=== PATIENT | male | born 1990 | race Caucasian/White ===

== ENCOUNTER 2018-10-13 10:34 | Inpatient (IN) | payer OTHER ==
[2018-10-13 11:00] VITALS: BMI 17.9
--- NOTE | 2018-10-13 12:28 | HP ---
COWS - Scale Resting Pulse: 1= [place] 81-100 Sweatin= Chills/Flushing Restless Observation: 1= Difficult to Sit Still Pupil Size: 0= Normal to Room Light Bone or Joint Aches: 2= Severe Diffuse Aches Runny Nose/ Eye Tearin= Runny Nose/Eyes GI Upset > 30mins: 2= Nausea/Diarrhea Tremor Observation: 1= Tremor [place], Not Seen Yawning Observation: 1= 1-2x During Session Anxiety or Irritability: 2=Irritable/Anxious Goose Flesh Skin: 3=Piloerection COWS Score: 16 CIWA Score Nausea/Vomitin Muscle Tremors: 2 Anxiety: 2 Agitation: 1-Slight > Activity Paroxysmal Sweats: 1-Minimal Palms Moist Orientation: 0-Oriented Tacttile Disturbances: 1-Very Mild Itch/Numbness Auditory Disturbances: 0-None Visual Disturbances: 0-None Headache: 2-Mild CIWA-Ar Total Score: 11 - Admission Criteria [facility] Guidelines: Admission for Medically Managed Detox: Requires at least one of the followin. CIWA greater than 12 2. Seizures within the past 24 hours 3. Delirium tremens within the past 24 hours 4. Hallucinations within the past 24 hours 5. Acute intervention needed for co occurring medical disorder 6. Acute intervention needed for co occurring psychiatric disorder 7. Severe withdrawal that cannot be handled at a lower level of care (continued vomiting, continued diarrhea, abnormal vital signs) requiring intravenous medication and/or fluids 8. Admission ROS [facility] Chief Complaint: 28 y/o M with PMH anxiety, bipolar, depression, insomnia, ADHD, rhabdo, hx cellulitis R hand who presents for detox from heroin, benzos (xanax), and alcohol. Allergies/Adverse Reactions: Allergies Allergy/AdvReac Type Severity Reaction Status Date / Time lamotrigine [From Lamictal] Allergy Verified 10/13/18 10:45 Penicillins Allergy Verified 10/13/18 10:45 History of Present Illness: 28 y/o M with PMH anxiety, bipolar, depression, insomnia, ADHD, rhabdo, hx R hand cellulitis who presents for detox from heroin, benzos (xanax), and alcohol. Per pt, his last use of heroin was yesterday. Snorted 3 bags worth. Has IVDA in past in b/l antecubital fossas. Sometimes uses daily, same amount. Has never OD. Longest sobriety 6 months when using subutex. Has been using suboxone 8mg BID. States that the heroin gives him the feeling of euphoria and pain relief. Last used benzos (xanax) yesterday. Used 3mg - bar version. Buys from street. Uses a few times a week. Usually also uses klonopin from his psychiatrist. Longest sobriety 1 yr. Last drank alcohol yesterday. 4 beers. Drinks a 6 pack a few times a week, as well as 1/2 pint of vodka. Also occasionally smokes marijuana 1 joint. Was in detox [address] [facility] PMH: as above PsxH: sx for gynecomastia meds: suboxone, klonopin, vivanz, marinol allergies: lamictal - suicidal ideation, PCN - rash FH: tyson SH: lives in home. on SSI.has smoked a few cigarettes / day x 10 yrs heroin and alcohol use as above. benzo use as above. - Ebola screening Have you traveled outside of the country in the last 21 days: No Have you had contact with anyone from an Ebola affected area: No Do you have a fever: No - Review of Systems Constitutional: Diaphoresis, Weakness, Unintentional Wgt. Loss EENT: reports: Tearing, Nose Congestion, Mouth Pain, Throat Swelling Respiratory: reports: Cough, Shortness of Breath Cardiac: reports: Chest Pain, Palpitations GI: reports: Nausea : reports: No Symptoms Reported Musculoskeletal: reports: Back Pain, Joint Pain, Muscle Pain Integumentary: reports: No Symptoms Reported Neuro: reports: Headache Endocrine: reports: No Symptoms Reported Hematology: reports: No Symptoms Reported Psychiatric: reports: Orientated x3, Agitated, Anxious Patient History - Patient Medical History Hx Anemia: No Hx Asthma: No Hx Chronic Obstructive Pulmonary Disease (COPD): No Hx Cancer: No Hx Cardiac Disorders: Yes (palpitations) Hx Congestive Heart Failure: No Hx Hypertension: No Hx Hypercholesterolemia: No Hx Pacemaker: No HX Cerebrovascular Accident: No Hx Seizures: No Hx Dementia: No Hx Diabetes: No Hx Gastrointestinal Disorders: No Hx Liver Disease: No Hx Genitourinary Disorders: Yes (Rhabdomyolysis) Hx Renal Disease (ESRD): No Hx Thyroid Disease: No Hx Human Immunodeficiency Virus (HIV): No Hx Hepatitis C: No - Patient Surgical History Past Surgical History: Yes Hx Neurologic Surgery: No Hx Cataract Extraction: No Hx Cardiac Surgery: No Hx Lung Surgery: No Hx Breast Surgery: No Hx Abdominal Surgery: No Hx Appendectomy: No Hx Cholecystectomy: No Hx Genitourinary Surgery: No Hx Section: No Hx Orthopedic Surgery: No Other Surgical History: sx for gynecomastia Anesthesia Reaction: No - PPD History Documented Results: Negative w/o proof PPD to be Administered?: Yes - Reproductive History Patient is a Female of Child Bearing Age (11 -55 yrs old): No - Smoking Cessation Smoking history: Current every day smoker Have you smoked in the past 12 months: No Aproximately how many cigarettes per day: 10 Hx Chewing Tobacco Use: No Initiated information on smoking cessation: Yes 'Breaking Loose' booklet given: 10/13/18 - Substances abused Alcohol Substance route: Oral Frequency: 3-6 times per week Amount used: 2-6 cans of beer Age of first use: 15 Date of last use: 10/12/18 Heroin Substance route: Injection Frequency: Daily Amount used: 1 bag to 1 bundle Age of first use: 18 Date of last use: 10/12/18 Alprazolam (Xanax) Substance route: Oral Frequency: 1-3 times last 30 days Amount used: 2mg-4mg tablets Age of first use: 16 Date of last use: 10/12/18 Oxycontin Substance route: Oral Frequency: 1-3 times last 30 days Amount used: 30 mg-120 mg when used Age of first use: 17 Date of last use: 10/11/18 Family Disease History - Family Disease History Family History: Denies Admission Physical Exam [facility] - Vital Signs Vital Signs: Vital Signs - 24 hr 10/13/18 10:50 Temperature 97.2 F L Pulse Rate 83 Respiratory 17 Rate Blood Pressure 120/81 - Physical General Appearance: Yes: Within Normal Limits HEENTM: Yes: Within Normal Limits, Normocephalic Respiratory: Yes: Within Normal Limits, Lungs Clear, Normal Breath Sounds Neck: Yes: Supple Breast: Yes: Breast Exam Deferred Cardiology: Yes: Regular Rhythm, Regular Rate, S1, S2 Abdominal: Yes: Non Tender, Soft Genitourinary: Yes: Within Normal Limits Back: Yes: Within Normal Limits Musculoskeletal: Yes: Within Normal Limits, full range of Motion Extremities: Yes: Within Normal Limits Neurological: Yes: java developer consultant II-XII NML intact Integumentary: Yes: Within Normal Limits Lymphatic: Yes: Within Normal Limits - Addiitonal Findings: Problem list: ADHD Anxiety Bipolar Depression hx cellulitis R hand hx rhabdomyolysis heroin use disorder benzo use disorder alcohol use with uncomplicated withdrawal Cleared for Admission [facility] - Detox or Rehab [facility] Level of Care: Medically Managed Detox Regimen/Protocol: Valium, Suboxone Breathalyzer - Breathalyzer Breathalyzer: 0 Urine Drug Screen - Test Device Lot number: [id number] Expiration date: 08/02/20 - Control Is test valid?: Yes - Results Drug screen NEGATIVE: No Urine drug screen results: THC-Marijuana, MOP-Opiates, BZO-Benzodiazepines, BUP- Suboxone Inpatient Rehab Admission - Rehab Decision to Admit Inpatient rehab admission?: No
--- NOTE | 2018-10-13 12:41 | PN ---
"Teaching Attending Note Name of Resident: Lizbeth Chávez ATTENDING PHYSICIAN STATEMENT I saw and evaluated the patient. I reviewed the resident's note and discussed the case with the resident. I agree with the resident's findings and plan as documented. SUBJECTIVE: OBJECTIVE: This report was requested by: Carolina Morales | Reference #: [id number] Others' Prescriptions Patient Name: Jai Luo Date: 1990 Address: [place] [address] Sex: Male Rx Written Rx Dispensed Drug Quantity Days Supply Prescriber Name 09/26/2018 09/26/2018 vyvanse 30 mg capsule 15 15 Tate Aparicio (STUNT PERSON) Patient Name: Jai Luo Date: 1990 Address: [address] [place] [address] Sex: Male Rx Written Rx Dispensed Drug Quantity Days Supply Prescriber Name 09/21/2018 09/21/2018 clonazepam 1 mg tablet 60 30 Inder Díaz MD 09/21/2018 09/21/2018 buprenorphine-naloxone 8-2 mg sl film 30 15 Inder Díaz MD 03/18/2018 03/23/2018 dronabinol 5 mg capsule 90 30 Yury, Domenica Patient Name: Jai Luo Date: 1990 Address: [place] [address] Sex: Male Rx Written Rx Dispensed Drug Quantity Days Supply Prescriber Name 08/26/2018 08/27/2018 vyvanse 30 mg capsule 15 15 Tate Aparicio A (STUNT PERSON) 08/26/2018 08/26/2018 clonazepam 0.5 mg tablet 30 15 PatriciaTate jeong A (STUNT PERSON) 07/27/2018 07/27/2018 clonazepam 1 mg tablet 14 7 Carola Gonzalez MD Patient Name: Jai Luo Date: 1990 Address: [place] [address] Sex: Male Rx Written Rx Dispensed Drug Quantity Days Supply Prescriber Name 08/15/2018 08/15/2018 lyrica 50 mg capsule 30 15 Lev, Kristine 08/15/2018 08/15/2018 buprenorphine 8 mg tablet sl 30 15 Clara Fernandez Patient Name: Jai Luo Date: 1990 Address: [address] [place] [id number] Sex: Male Rx Written Rx Dispensed Drug Quantity Days Supply Prescriber Name 07/06/2018 07/07/2018 buprenorphine 8 mg tablet sl 30 15 [facility] 04/01/2018 04/03/2018 diazepam 10 mg tablet 14 14 Azul Salazar 04/01/2018 04/03/2018 buprenorphine 8 mg tablet sl 28 14 SciAzul holloway 03/07/2018 03/07/2018 lyrica 50 mg capsule 14 14 Lina Alston MD 02/10/2018 02/11/2018 lyrica 50 mg capsule 15 15 [facility] 02/10/2018 02/11/2018 diazepam 10 mg tablet 30 15 [facility]ahlyn [facility] 01/11/2018 01/11/2018 lyrica 200 mg capsule 60 30 RysMakeda justice MD 01/11/2018 01/11/2018 diazepam 10 mg tablet 30 30 RysMakeda justice MD 11/09/2017 11/09/2017 buprenorphine 8 mg tablet sl 60 30 Elaina, Víctor 11/09/2017 11/09/2017 lyrica 100 mg capsule 90 30 Elaina, Víctor 11/09/2017 11/09/2017 diazepam 10 mg tablet 80 30 Elaina, Víctor 11/09/2017 11/09/2017 dextroamphetamine 10 mg tab 75 30 Elaina, Víctor Patient Name: Jai Luo Date: 1990 Address: [address] [place] [address] Sex: Male Rx Written Rx Dispensed Drug Quantity Days Supply Prescriber Name 06/02/2018 06/03/2018 clonazepam 1 mg tablet 28 14 Evelina Badillo MD 03/04/2018 03/07/2018 buprenorphine 8 mg tablet sl 14 14 Armin Capellan MD 01/25/2018 01/26/2018 buprenorphine 8 mg tablet sl 14 7 Augustus Figueredo MD 01/25/2018 01/26/2018 lyrica 50 mg capsule 7 7 Evelina Badillo MD * - Drugs marked with an asterisk are compound drugs. If the compound drug is made up of more than one controlled substance, then each controlled substance will be a separate row in the pt here requesting detox from etoh abuse , reports use since age 16 , current daily use 1x 6-pk 3-4 x /week , denies seizures, blackouts, + tremors reports hospitalizations in the last week - multiple , [facility] , went for palpitations, claims BW done, ekg done no findings, d/c most recently on Wednesday , saw psychiatrist yesterday and was referred for detox 2/2 intoxication , reports use yesterday . Pt claims he lost his rx and next appt is 10/20/18 w/ psychiatry for refills. Pt appears anxious, evasive, guarded and concerned about obtaining medication rx . heroin - since age 18 , ivdu ,denies Narcan use , reports blackouts, reports abscess in the past ,tx > 4 years ago . LOngest sobriety x 6 mo 2 years ago while in rehab in [place] . benzo - rx from psychiatry ASSESSMENT AND PLAN: etoh abuse , episodic , current symptoms as above. Valium detox . MAT w/ Buprenorphine . f/up w/ prescriber for rx . Psychiatry consult."
[2018-10-13] MEDS ORDERED: IBUPROFEN 400 MG TABLET (FP) PO PRN (12:58)
[2018-10-13] MEDS ORDERED: MAGNESIUM HYDROX 2400MG/30ML ORAL SUSPENSION 30 ML CUP PO PRN (12:58)
[2018-10-13] MEDS ORDERED: BISMUTH SUBSALICYLATE 262 MG/15 ML BTL PO PRN (12:58)
[2018-10-13] MEDS ORDERED: MENTHOL/PHENOL 1 EACH UD MM PRN (12:58)
[2018-10-13] MEDS ORDERED: MAG HYDROX/AL HYDROX/SIMETH 30 ML UNIT-DOSE CUP PO PRN (12:58)
[2018-10-13] MEDS: BUPRENORPHINE/NALOXONE 8 MG/2 MG FILM PACKET SL SCH (14:01)
[2018-10-13] MEDS: diazePAM 5 MG TABLET PO SCH ×2 (14:05→22:03)
[2018-10-13 16:48] LABS: HEMATOCRIT 43.6 % (35.4-49); HEMOGLOBIN 14.9 GM/dL (11.7-16.9); MCH 28.4 pg (25.7-33.7); MCHC 34.2 g/dl (32.0-35.9); MEAN PLT VOLUME 8.1 fl (7.5-11.1); PLATELET COUNT 296 K/MM3 (134-434); RBC 5.26 M/mm3 (4.00-5.60); WHITE BLOOD COUNT 6.4 K/mm3 (4.0-10.0)
[2018-10-13 16:54] LABS: ALBUMIN 4.2 g/dl (3.4-5.0); BILIRUBIN,TOTAL 0.8 mg/dL (0.2-1); BLOOD UREA NITROGEN 11.7 mg/dL (7-18); CALCIUM 9.4 mg/dL (8.5-10.1); CREATININE 0.7 mg/dL (0.55-1.3); POTASSIUM 4.3 mmol/L (3.5-5.1); TOT PROT 7.7 g/dl (6.4-8.2)
[2018-10-13] MEDS: diazePAM 5 MG TABLET PO PRN (18:16)
[2018-10-13] MEDS: NICOTINE POLACRILEX 2 MG GUM BUC PRN (18:34)
[2018-10-13] MEDS: THIAMINE HCL 100 MG TABLET (FP) PO SCH (22:03)
[2018-10-13] MEDS: MELATONIN 5 MG TABLETS PO PRN (22:03)
[2018-10-14] MEDS: diazePAM 5 MG TABLET PO SCH ×2 (05:32→17:02)
[2018-10-14] MEDS: diazePAM 5 MG TABLET PO PRN ×3 (08:30→20:13)
[2018-10-14] MEDS: ACETAMINOPHEN 325 MG TABLET (FP) PO PRN (08:30)
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
[2018-10-14] MEDS: PRENATAL VITAMINS W/ FOLIC ACID TABLET (FP) PO SCH (10:27)
[2018-10-14] MEDS: BUPRENORPHINE/NALOXONE 8 MG/2 MG FILM PACKET SL SCH (10:27)
[2018-10-14] MEDS: NICOTINE POLACRILEX 2 MG GUM BUC PRN (13:15)
--- NOTE | 2018-10-14 14:13 | PN ---
S CIWA - CIWA Score Nausea/Vomitin Muscle Tremors: 2 Anxiety: 2 Agitation: 2 Paroxysmal Sweats: 1-Minimal Palms Moist Orientation: 0-Oriented Tacttile Disturbances: 1-Very Mild Itch/Numbness Auditory Disturbances: 1-Very Mild Visual Disturbances: 0-None Headache: 2-Mild CIWA-Ar Total Score: 13 BHS COWS - Scale Resting Pulse: 0= [place] 80 or Below Sweatin= No chills or Flushing Restless Observation: 0= Sits Still Pupil Size: 1= Pupils >than Normal Bone or Joint Aches: 1= Mild Discomfort Runny Nose/ Eye Tearin= Nasal Congestion GI Upset > 30mins: 1= Stomach Cramp Tremor Observation of Outstretched Hands: 1= Tremor [place], Not Seen Yawning Observation: 1= 1-2x During Session Anxiety or Irritability: 2=Irritable/Anxious Goose Flesh Skin: 0=Smooth Skin COWS Score: 8 BHS Progress Note (SOAP) Subjective: alert,irritable,anxious,interrupted sleep,tremor,pain in the body and back Objective: 10/14/18 14:12 Vital Signs Temperature 97.2 F L 10/14/18 14:00 Pulse Rate 78 10/14/18 14:00 Respiratory Rate 18 10/14/18 14:00 Blood Pressure 118/79 10/14/18 14:00 O2 Sat by Pulse Oximetry (%) Laboratory Last Values WBC 6.4 K/mm3 (4.0-10.0) 10/13/18 13:20 RBC 5.26 M/mm3 (4.00-5.60) 10/13/18 13:20 Hgb 14.9 GM/dL (11.7-16.9) 10/13/18 13:20 Hct 43.6 % (35.4-49) 10/13/18 13:20 MCV 83.0 fl (80-96) 10/13/18 13:20 MCH 28.4 pg (25.7-33.7) 10/13/18 13:20 MCHC 34.2 g/dl (32.0-35.9) 10/13/18 13:20 RDW 14.0 % (11.9-15.9) 10/13/18 13:20 Plt Count 296 K/MM3 (134-434) D 10/13/18 13:20 MPV 8.1 fl (7.5-11.1) 10/13/18 13:20 Sodium 140 mmol/L (136-145) 10/13/18 13:20 Potassium 4.3 mmol/L (3.5-5.1) 10/13/18 13:20 Chloride 106 mmol/L (98-107) 10/13/18 13:20 Carbon Dioxide 29 mmol/L (21-32) 10/13/18 13:20 Anion Gap 5 MMOL/L (8-16) L 10/13/18 13:20 BUN 11.7 mg/dL (7-18) 10/13/18 13:20 Creatinine 0.7 mg/dL (0.55-1.3) 10/13/18 13:20 Est GFR (CKD-EPI)AfAm 148.85 10/13/18 13:20 Est GFR (CKD-EPI)NonAf 128.43 10/13/18 13:20 Random Glucose 85 mg/dL (74-106) 10/13/18 13:20 Calcium 9.4 mg/dL (8.5-10.1) 10/13/18 13:20 Total Bilirubin 0.8 mg/dL (0.2-1) 10/13/18 13:20 AST 5 U/L (15-37) L 10/13/18 13:20 ALT 20 U/L (13-61) 10/13/18 13:20 Alkaline Phosphatase 86 U/L (45-117) 10/13/18 13:20 Total Protein 7.7 g/dl (6.4-8.2) 10/13/18 13:20 Albumin 4.2 g/dl (3.4-5.0) 10/13/18 13:20 RPR Titer Nonreactive (NONREACTIVE) 10/13/18 13:20 HIV 1&2 Antibody Screen Negative 10/14/18 07:00 HIV P24 Antigen Negative 10/14/18 07:00 Assessment: 10/14/18 14:13 withdrawal symptom Plan: continue detox valium regimen and suboxone
[2018-10-14] MEDS: THIAMINE HCL 100 MG TABLET (FP) PO SCH (22:08)
[2018-10-14] MEDS: MELATONIN 5 MG TABLETS PO PRN (22:09)
[2018-10-14] MEDS: OLANZapine 5 MG TABLET PO SCH (22:29)
[2018-10-15] MEDS ORDERED: diazePAM 5 MG TABLET PO SCH (06:00)
[2018-10-15] MEDS ORDERED: diazePAM 5 MG TABLET PO ONE (06:00)
[2018-10-15] MEDS: diazePAM 5 MG TABLET PO PRN ×4 (08:49→23:26)
[2018-10-15] MEDS: BUPRENORPHINE/NALOXONE 8 MG/2 MG FILM PACKET SL SCH (10:17)
[2018-10-15] MEDS: PRENATAL VITAMINS W/ FOLIC ACID TABLET (FP) PO SCH (10:17)
--- NOTE | 2018-10-15 14:48 | PN ---
S CIWA - CIWA Score Nausea/Vomitin-No Nausea/No Vomiting Muscle Tremors: 2 Anxiety: 2 Agitation: 0-Normal Activity Paroxysmal Sweats: 2 Orientation: 0-Oriented Tacttile Disturbances: 1-Very Mild Itch/Numbness Auditory Disturbances: 0-None Visual Disturbances: 1-Very Mild Sensitivity Headache: 0-None Present CIWA-Ar Total Score: 8 BHS COWS - Scale Resting Pulse: 0= [place] 80 or Below Sweatin= Chills/Flushing Restless Observation: 0= Sits Still Pupil Size: 0= Normal to Room Light Bone or Joint Aches: 2= Severe Diffuse Aches Runny Nose/ Eye Tearin= None GI Upset > 30mins: 0= None Tremor Observation of Outstretched Hands: 2= Slight Tremor Visible Yawning Observation: 1= 1-2x During Session Anxiety or Irritability: 2=Irritable/Anxious Goose Flesh Skin: 0=Smooth Skin COWS Score: 8 BHS Progress Note (SOAP) Subjective: Tremors, Body Aches, Tremors, Fatigue. Objective: PATIENT A & O X 3. IN NO ACUTE DISTRESS. 10/15/18 14:49 Vital Signs Temperature 96.9 F L 10/15/18 14:27 Pulse Rate 83 10/15/18 14:27 Respiratory Rate 18 10/15/18 14:27 Blood Pressure 115/75 10/15/18 14:27 O2 Sat by Pulse Oximetry (%) Laboratory Tests 10/13/18 10/13/18 10/13/18 13:20 13:20 13:20 WBC 6.4 RBC 5.26 Hgb 14.9 Hct 43.6 MCV 83.0 MCH 28.4 MCHC 34.2 RDW 14.0 Plt Count 296 D MPV 8.1 Sodium 140 Potassium 4.3 Chloride 106 Carbon Dioxide 29 Anion Gap 5 L BUN 11.7 Creatinine 0.7 Est GFR (CKD-EPI)AfAm 148.85 Est GFR (CKD-EPI)NonAf 128.43 Random Glucose 85 Calcium 9.4 Total Bilirubin 0.8 AST 5 L ALT 20 Alkaline Phosphatase 86 Total Protein 7.7 Albumin 4.2 RPR Titer Nonreactive HIV 1&2 Antibody Screen HIV P24 Antigen 10/14/18 07:00 WBC RBC Hgb Hct MCV MCH MCHC RDW Plt Count MPV Sodium Potassium Chloride Carbon Dioxide Anion Gap BUN Creatinine Est GFR (CKD-EPI)AfAm Est GFR (CKD-EPI)NonAf Random Glucose Calcium Total Bilirubin AST ALT Alkaline Phosphatase Total Protein Albumin RPR Titer HIV 1&2 Antibody Screen Negative HIV P24 Antigen Negative LABS NOTED. Assessment: 10/15/18 14:49 WITHDRAWAL SYMPTOMS. Plan: CONTINUE DETOX. DUE TO PRESENCE OF LINGERING WITHDRAWAL SYMPTOMS, PATIENT PERMITTED TO REMAIN ON DETOX UNIT UNTIL TOMORROW, AT WHICH TIME HE WILL BE FURTHER MEDICALLY EVALUATED AND AT WHICH TIME AFTERCARE OPTIONS WILL BE EXPLORED.
[2018-10-15] MEDS: NICOTINE POLACRILEX 2 MG GUM BUC PRN (15:23)
[2018-10-15] MEDS: ACETAMINOPHEN 325 MG TABLET (FP) PO PRN (18:39)
[2018-10-15] MEDS: MELATONIN 5 MG TABLETS PO PRN (22:29)
[2018-10-15] MEDS: THIAMINE HCL 100 MG TABLET (FP) PO SCH (22:29)
[2018-10-15] MEDS: OLANZapine 5 MG TABLET PO SCH (22:29)
[2018-10-16] MEDS ORDERED: diazePAM 5 MG TABLET PO ONE (06:00)
[2018-10-16] MEDS: diazePAM 5 MG TABLET PO PRN (10:40)
[2018-10-16] MEDS: PRENATAL VITAMINS W/ FOLIC ACID TABLET (FP) PO SCH (10:40)
[2018-10-16] MEDS: BUPRENORPHINE/NALOXONE 8 MG/2 MG FILM PACKET SL SCH (10:40)
--- NOTE | 2018-10-16 12:41 | HP ---
[facility] Rehab Assess/Revision - Admission History Admitted to Rehab from: [facility] Date of Admission to Rehab: 10/16/18 - Vital signs Vital Signs: Vital Signs Period Temp Pulse Resp BP Sys/Paul Pulse Ox Last 24 Hr 96.1 F-98.3 F 72-84 16-18 98-115/58-75 - Findings Detox History & Physical reviewed: Yes Concur with findings: Yes Comments/Additional Findings: transferred from detox to rehab admission as per protocol Inpatient Rehab Admission - Rehab Decision to Admit Inpatient rehab admission?: Yes - Initial Determination Are CD services needed?: Yes Free of communicable disease: Yes Not in need of hospitalization: Yes - Rehab Admission Criteria Previous failed treatment: Yes Poor recovery environment: Yes Comorbidities: Yes Lacks judgement: No Patient is meeting Inpatient Rehab admission criteria:: Yes
[2018-10-16] MEDS: NICOTINE POLACRILEX 2 MG GUM BUC PRN (15:15)
[2018-10-16] MEDS: OLANZapine 5 MG TABLET PO SCH (21:55)
[2018-10-16] MEDS: THIAMINE HCL 100 MG TABLET (FP) PO SCH (21:55)
[2018-10-16] MEDS: ACETAMINOPHEN 325 MG TABLET (FP) PO PRN (21:55)
[2018-10-16] MEDS: MELATONIN 5 MG TABLETS PO PRN (21:55)
--- NOTE | 2018-10-17 10:09 | PN ---
"[facility] Progress Note Note: NEW PATIENT ADMITTED TO REHAB. The Drug Utilization Report below displays all of the controlled substance prescriptions, if any, that your patient has filled in the last twelve months. The information displayed on this report is compiled from pharmacy submissions to the Department, and accurately reflects the information as submitted by the pharmacies. This report was requested by: Eulalia Rojo | Reference #: [id number] You have not added a DAWOOD number. Keeping your DAWOOD number(s) up to date on the My DAWOOD Numbers page will enable the separation of your prescriptions from others ' in the search results. Others' Prescriptions Patient Name: Jai Luo Date: 1990 Address: [address] [place] [address] Sex: Male Rx Written Rx Dispensed Drug Quantity Days Supply Prescriber Name 09/26/2018 09/26/2018 vyvanse 30 mg capsule 15 15 Tate Aparicio (COMMERCIAL ELECTRICIAN) Patient Name: Jai Luo Date: 1990 Address: [address] [place] [id number] Sex: Male Rx Written Rx Dispensed Drug Quantity Days Supply Prescriber Name 09/21/2018 09/21/2018 clonazepam 1 mg tablet 60 30 Inder Díaz MD 09/21/2018 09/21/2018 buprenorphine-naloxone 8-2 mg sl film 30 15 Inder Díaz MD 03/18/2018 03/23/2018 dronabinol 5 mg capsule 90 30 Yury, Domenica Patient Name: Jai Luo Date: 1990 Address: [address] [place] [id number] Sex: Male Rx Written Rx Dispensed Drug Quantity Days Supply Prescriber Name 08/26/2018 08/27/2018 vyvanse 30 mg capsule 15 15 Tate Aparicio (COMMERCIAL ELECTRICIAN) 08/26/2018 08/26/2018 clonazepam 0.5 mg tablet 30 15 Tate Aparicio (COMMERCIAL ELECTRICIAN) 07/27/2018 07/27/2018 clonazepam 1 mg tablet 14 7 Carola Gonzalez MD Patient Name: Jai Luo Date: 1990 Address: [address] [place] [address] Sex: Male Rx Written Rx Dispensed Drug Quantity Days Supply Prescriber Name 08/15/2018 08/15/2018 lyrica 50 mg capsule 30 15 Lev, Kristine 08/15/2018 08/15/2018 buprenorphine 8 mg tablet sl 30 15 Rafael Fernandezchetan Patient Name: Jai Luo Date: 1990 Address: [address] [place] [id number] Sex: Male Rx Written Rx Dispensed Drug Quantity Days Supply Prescriber Name 07/06/2018 07/07/2018 buprenorphine 8 mg tablet sl 30 15 Rebecca [facility] 04/01/2018 04/03/2018 diazepam 10 mg tablet 14 14 SciaccaAzul 04/01/2018 04/03/2018 buprenorphine 8 mg tablet sl 28 14 SciaccaAzul 03/07/2018 03/07/2018 lyrica 50 mg capsule 14 14 Lina Alston MD 02/10/2018 02/11/2018 lyrica 50 mg capsule 15 15 [facility] 02/11/2018 diazepam 10 mg tablet 30 15 [facility] 01/11/2018 01/11/2018 lyrica 200 mg capsule 60 30 RyMakeda jimenez MD 01/11/2018 01/11/2018 diazepam 10 mg tablet 30 30 RyMakeda jimenez MD 11/09/2017 11/09/2017 buprenorphine 8 mg tablet sl 60 30 Elaina, Víctor 11/09/2017 11/09/2017 lyrica 100 mg capsule 90 30 Elaina, Víctor 11/09/2017 11/09/2017 diazepam 10 mg tablet 80 30 Elaina, Víctor 11/09/2017 11/09/2017 dextroamphetamine 10 mg tab 75 30 Elaina, Víctor Patient Name: Jai Luo Date: 1990 Address: [address] [place] [id number] Sex: Male Rx Written Rx Dispensed Drug Quantity Days Supply Prescriber Name 06/02/2018 06/03/2018 clonazepam 1 mg tablet 28 14 Evelina Badillo MD 03/04/2018 03/07/2018 buprenorphine 8 mg tablet sl 14 14 Armin Capellan MD 01/25/2018 01/26/2018 buprenorphine 8 mg tablet sl 14 7 Augustus Figueredo MD 01/25/2018 01/26/2018 lyrica 50 mg capsule 7 7 Evelina Badillo MD * - Drugs marked with an asterisk are compound drugs. If the compound drug is made up of more than one controlled substance, then each controlled substance will be a separate row in the table. ON SUBOXONE 8MG/2MG SL DAILY . MONITOR PT AND MAY ADJUST IF NEEDED."
[2018-10-17] MEDS: PRENATAL VITAMINS W/ FOLIC ACID TABLET (FP) PO SCH (10:32)
[2018-10-17] MEDS: BUPRENORPHINE/NALOXONE 8 MG/2 MG FILM PACKET SL SCH (10:32)
[2018-10-17] MEDS: NICOTINE POLACRILEX 2 MG GUM BUC PRN ×2 (14:41→17:36)
[2018-10-17] MEDS: ACETAMINOPHEN 325 MG TABLET (FP) PO PRN (21:57)
[2018-10-17] MEDS: THIAMINE HCL 100 MG TABLET (FP) PO SCH (21:57)
[2018-10-17] MEDS: OLANZapine 5 MG TABLET PO SCH (21:57)
[2018-10-18] MEDS: PRENATAL VITAMINS W/ FOLIC ACID TABLET (FP) PO SCH (10:25)
[2018-10-18] MEDS: BUPRENORPHINE/NALOXONE 8 MG/2 MG FILM PACKET SL SCH (10:27)
[2018-10-18] MEDS: ACETAMINOPHEN 325 MG TABLET (FP) PO PRN ×2 (10:27→22:05)
[2018-10-18] MEDS: NICOTINE POLACRILEX 2 MG GUM BUC PRN ×2 (12:47→23:03)
[2018-10-18] MEDS: OLANZapine 5 MG TABLET PO SCH (22:06)
[2018-10-18] MEDS: THIAMINE HCL 100 MG TABLET (FP) PO SCH (22:06)
[2018-10-19] MEDS: BUPRENORPHINE/NALOXONE 8 MG/2 MG FILM PACKET SL SCH (10:55)
[2018-10-19] MEDS: PRENATAL VITAMINS W/ FOLIC ACID TABLET (FP) PO SCH (10:55)
[2018-10-19] MEDS: ACETAMINOPHEN 325 MG TABLET (FP) PO PRN (13:41)
[2018-10-19] MEDS: NICOTINE POLACRILEX 2 MG GUM BUC PRN ×2 (13:42→18:27)
[2018-10-19] MEDS ORDERED: TRIMETHOBENZAMIDE HCL 300 MG CAPSULE PO PRN (15:28)
[2018-10-19] MEDS ORDERED: CYCLOBENZAPRINE HCL 10 MG TABLET (FP) PO PRN (15:29)
--- NOTE | 2018-10-19 15:36 | PN ---
[facility] Progress Note Note: PATIENT REPORTS TREMORS AND NAUSEA / DRY HEAVING, WHICH HE BELIEVES TO BE DUE LINGERING WITHDRAWAL / DETOX SYMPTOMS. PRN TIGAN PO ORDERED FOR NAUSEA/ DRY HEAVING. PRN FLEXERIL PO ORDERED TO HELP ALLEVIATE TREMORS. CLONIDINE, 0.1 MG PO X 1 DOSE ORDERED TO HELP ALLEVIATE LINGERING WITHDRAWAL SYMPTOMS (AT THIS TIME: BP: 124/78; IA: 107). Emerita WANG AREA FIELD MANAGER
[2018-10-19] MEDS ORDERED: cloNIDine HCL 0.1 MG TABLET PO ONE (16:15)
[2018-10-19] MEDS ORDERED: BUPRENORPHINE/NALOXONE 4 MG/1 MG FILM PACKET SL ONE (20:00)
[2018-10-19] MEDS ORDERED: BUPRENORPHINE/NALOXONE 2 MG/0.5 MG FILM PACKET SL ONE (20:30)
--- NOTE | 2018-10-19 20:37 | PN ---
[facility] Progress Note (SOAP) Subjective: C/o tremors, abdominal cramping and palpitations. States feels in withdrawal from benzo. Objective: Alert. Oriented. Pupils = 4 mm. LIN; Increased facial moisture. HR: 104; Lungs CTA; BS+/ hyperactive 10/19/18 EKG: NSR (HR:97) w/ (R) atrial enlargement. (Only Prior EKG 10/12/15 was WNL) Assessment: Extended opioid withdrawal symptoms. Borderline EKG Plan: EKG (done) Encourage increased fluid intake. Give once dose Suboxone 4 mg and evaluate response. Support referral to Psych for eval.
[2018-10-19] MEDS: THIAMINE HCL 100 MG TABLET (FP) PO SCH (21:49)
[2018-10-19] MEDS: OLANZapine 5 MG TABLET PO SCH (21:49)
[2018-10-19] MEDS: MELATONIN 5 MG TABLETS PO PRN (21:49)
[2018-10-20] MEDS: NICOTINE POLACRILEX 2 MG GUM BUC PRN (01:01)
[2018-10-20 07:13] VITALS: BP 113/78; PULSE 92; TEMP 97.4
[2018-10-20] MEDS: PRENATAL VITAMINS W/ FOLIC ACID TABLET (FP) PO SCH (09:17)
[2018-10-20] MEDS: BUPRENORPHINE/NALOXONE 8 MG/2 MG FILM PACKET SL SCH (09:17)
--- NOTE | 2018-10-20 09:58 | PN ---
[facility] Progress Note (SOAP) Subjective: Pt requesting to leave treatment today but did not give reason. Pt appeared to be in a hurry to leave and agitated when asked pertinent questions for completing d/c documents on medical follow up after discharge. Pt met with his counselor Benigno Lea and was referred to [facility] on [address] [place] [address] for CD aftercare. Pt reports to this auto service writer that he has a medical/ Suboxone provider Tate Aparicio PNP with [facility] [address] [place] [id number]. Ph: . States he will go to the doctor today after he leaves. Pt reports he has own suboxone/psych at home. Pt is alert o x 3. Denies s/h/i. Objective: 10/20/18 10:04 Vital Signs - 24 hr 10/20/18 07:12 Temperature 97.4 F L Pulse Rate 92 H Respiratory 18 Rate Blood Pressure 113/78 Laboratory Tests 10/13/18 10/13/18 10/13/18 13:20 13:20 13:20 WBC 6.4 RBC 5.26 Hgb 14.9 Hct 43.6 MCV 83.0 MCH 28.4 MCHC 34.2 RDW 14.0 Plt Count 296 D MPV 8.1 Sodium 140 Potassium 4.3 Chloride 106 Carbon Dioxide 29 Anion Gap 5 L BUN 11.7 Creatinine 0.7 Est GFR (CKD-EPI)AfAm 148.85 Est GFR (CKD-EPI)NonAf 128.43 Random Glucose 85 Calcium 9.4 Total Bilirubin 0.8 AST 5 L ALT 20 Alkaline Phosphatase 86 Total Protein 7.7 Albumin 4.2 RPR Titer Nonreactive HIV 1&2 Antibody Screen HIV P24 Antigen TB (QFT) Incubation TB Test (QFT) Nil TB Test (QFT) Mitogen TB Test (QFT) Antigen TB Test (QFT) TB Positive Criteria 10/13/18 10/14/18 13:20 07:00 WBC RBC Hgb Hct MCV MCH MCHC RDW Plt Count MPV Sodium Potassium Chloride Carbon Dioxide Anion Gap BUN Creatinine Est GFR (CKD-EPI)AfAm Est GFR (CKD-EPI)NonAf Random Glucose Calcium Total Bilirubin AST ALT Alkaline Phosphatase Total Protein Albumin RPR Titer HIV 1&2 Antibody Screen Negative HIV P24 Antigen Negative TB (QFT) Incubation TB Test (QFT) Nil 0.02 TB Test (QFT) Mitogen >10.00 TB Test (QFT) Antigen 0.02 TB Test (QFT) Negative TB Positive Criteria copies of labs given to pt in discharge package. 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 Follow up with Medical/Suboxone provider as above for continuation of treatment phone #/address given to patient to see provider within 1 week after discharge.
--- NOTE | 2018-10-20 15:23 | EKG ---
Test Reason : Blood Pressure : / mmHG Vent. Rate : 097 BPM Atrial Rate : 097 BPM P-R Int : 166 ms QRS Dur : 086 ms QT Int : 348 ms P-R-T Axes : 070 079 066 degrees QTc Int : 441 ms NORMAL SINUS RHYTHM RIGHT ATRIAL ENLARGEMENT BORDERLINE ECG WHEN COMPARED WITH ECG OF 12-OCT-2015 09:19, NONSPECIFIC T WAVE ABNORMALITY NO LONGER EVIDENT IN INFERIOR LEADS Confirmed by REYES MOELLER, ROSSANA ([id number]) on 10/20/2018 3:23:30 PM Referred By: Confirmed By:ROSSANA CHAMBERS MD
== END 2018-10-20 09:25 | disposition home or self-care (01) | DRG 895 ==
LOC: YASAS 10:34 → Y3N 13:17 → Y5N 10-16 12:43
PROVIDERS: ADMIT Surgery; ATTEND Psychiatry & Neurology Psychiatry
PROC: HZ42ZZZ Group Counseling for Substance Abuse Treatment, Cognitive-Behavioral (ICD-10-PCS; principal; 2018-10-13)
DX: F11.20 Opioid dependence, uncomplicated (principal); F13.20 Sedative, hypnotic or anxiolytic dependence, uncomplicated; M62.82 Rhabdomyolysis; F10.20 Alcohol dependence, uncomplicated; F31.9 Bipolar disorder, unspecified; F41.9 Anxiety disorder, unspecified; F90.9 Attention-deficit hyperactivity disorder, unspecified type; Z51.81 Encounter for therapeutic drug level monitoring; Z86.79 Personal history of other diseases of the circulatory system
CPT/HCPCS: 36415; 80053; 85027; 86480; 86593; 87389; 93005; 93010; J0735

== ENCOUNTER 2018-11-30 11:13 | Inpatient (IN) | payer OTHER ==
[2018-11-30 11:27] VITALS: BMI 17.9
--- NOTE | 2018-11-30 11:55 | HP ---
COWS - Scale Resting Pulse: 0= MD 80 or Below Sweatin=Flushed/Facial Moisture Restless Observation: 1= Difficult to Sit Still Pupil Size: 2= Moderately Dilated Bone or Joint Aches: 2= Severe Diffuse Aches Runny Nose/ Eye Tearin= Runny Nose/Eyes GI Upset > 30mins: 3= Vomiting/Diarrhea Tremor Observation: 2= Slight Tremor Visible Yawning Observation: 1= 1-2x During Session Anxiety or Irritability: 2=Irritable/Anxious Goose Flesh Skin: 3=Piloerection COWS Score: 20 CIWA Score Nausea/Vomitin Muscle Tremors: 3 Anxiety: 4-Mod. Anxious/Guarded Agitation: 3 Paroxysmal Sweats: No Perspiration Orientation: 0-Oriented Tacttile Disturbances: 0-None Auditory Disturbances: 0-None Visual Disturbances: 0-None Headache: 2-Mild CIWA-Ar Total Score: 15 - Admission Criteria [facility] Guidelines: Admission for Medically Managed Detox: Requires at least one of the followin. CIWA greater than 12 2. Seizures within the past 24 hours 3. Delirium tremens within the past 24 hours 4. Hallucinations within the past 24 hours 5. Acute intervention needed for co occurring medical disorder 6. Acute intervention needed for co occurring psychiatric disorder 7. Severe withdrawal that cannot be handled at a lower level of care (continued vomiting, continued diarrhea, abnormal vital signs) requiring intravenous medication and/or fluids 8. Admission ROS [facility] Chief Complaint: " I am using a lot of drugs." Allergies/Adverse Reactions: Allergies Allergy/AdvReac Type Severity Reaction Status Date / Time lamotrigine [From Lamictal] Allergy Verified 11/30/18 11:17 Penicillins Allergy Verified 11/30/18 11:17 History of Present Illness: Patient is a 28 year old male with multisubstance use disorder. He was seen earlier in [facility] with chest pain and palpitations. EKG done there normal and CXR read by ER attending Maxine Finley as normal and no pathology, respectively. However, a urine toxicology demonstrated positive multiple positive substances. See ER sheet. Also he was ruled out for UT, with negative troponins. He admits to using Heroin a bundle intranasal and intravenously, last used yesterday. He started using at age [age] years old. He admits to drinking 6 pack of beer every other day. He uses Klonopin and Xanax total up to 10 mg per day for over a year. He uses Marijuana 1-2 blunts per day started using 13 years old. He was just here for detox a couple of months ago. He did attend rehab but did not complete it. He smokes ciggarettes a ppd since the age [age] years old. He's had a seizure from withdrawals in the past from benzodiazepines. Psych Hrx: Anxiety D/O, ADD PMH: None Psurg Hx: Gynecomastia surgery 8 years ago. Exam Limitations: No Limitations - Ebola screening Have you traveled outside of the country in the last 21 days: No Have you had contact with anyone from an Ebola affected area: No Have you been sick,other than usual withdrawal symptoms: No Do you have a fever: No - Review of Systems Constitutional: No Symptoms Reported, Chills, Diaphoresis EENT: reports: No Symptoms Reported Respiratory: reports: No Symptoms reported Cardiac: reports: No Symptoms Reported GI: reports: Abdominal Distended, Nausea, Vomiting, Abdominal cramping : reports: No Symptoms Reported Musculoskeletal: reports: No Symptoms Reported Integumentary: reports: Rash (chronic rash erythematous on chest and back) Neuro: reports: No Symptoms reported Endocrine: reports: No Symptoms Reported Hematology: reports: No Symptoms Reported Psychiatric: reports: Judgement Intact, Mood/Affect Appropiate, Orientated x3, Anxious, Depressed Other Systems: Reviewed and Negative Patient History - Patient Medical History Hx Anemia: No Hx Asthma: No Hx Chronic Obstructive Pulmonary Disease (COPD): No Hx Cancer: No Hx Cardiac Disorders: No Hx Congestive Heart Failure: No Hx Hypertension: No Hx Hypercholesterolemia: No Hx Pacemaker: No HX Cerebrovascular Accident: No Hx Seizures: Yes (from withdrawal) Hx Dementia: No Hx Diabetes: No Hx Gastrointestinal Disorders: No Hx Liver Disease: No Hx Genitourinary Disorders: No Hx Sexually Transmitted Disorders: No Hx Renal Disease (ESRD): No Hx Thyroid Disease: No Hx Human Immunodeficiency Virus (HIV): No Hx Hepatitis C: No Hx Depression: Yes Hx Suicide Attempt: No Hx Schizophrenia: No - Patient Surgical History Past Surgical History: Yes Hx Neurologic Surgery: No Hx Cataract Extraction: No Hx Cardiac Surgery: No Hx Lung Surgery: No Hx Breast Surgery: Yes (Reduction- 6 yrs ago) Hx Breast Biopsy: No Hx Abdominal Surgery: No Hx Appendectomy: No Hx Cholecystectomy: No Hx Genitourinary Surgery: No Hx Section: No Hx Orthopedic Surgery: No Other Surgical History: sx for gynecomastia Anesthesia Reaction: No - Smoking Cessation Smoking history: Current some day smoker Have you smoked in the past 12 months: No Aproximately how many cigarettes per day: 1 Hx Chewing Tobacco Use: No Initiated information on smoking cessation: Yes 'Breaking Loose' booklet given: 11/30/18 - Substances abused Alcohol Substance route: Oral Frequency: 3-6 times per week Amount used: 6 cans of beer Age of first use: 15 Date of last use: 11/29/18 Heroin Substance route: Injection Frequency: Daily Amount used: 1 bundle Age of first use: 18 Date of last use: 11/29/18 Alprazolam (Xanax) Substance route: Oral Frequency: 1-3 times last 30 days Amount used: 2mg-4mg tablets Age of first use: 16 Date of last use: 11/28/18 Oxycontin Substance route: Oral Frequency: 1-2 times per week Amount used: 30 mg-120 mg when used Age of first use: 17 Date of last use: 11/26/18 Benzodiazepine (Klonopin) Substance route: Oral Frequency: Daily Amount used: 2 MG TAB Age of first use: 15 Date of last use: 11/30/18 PCP Substance route: Smoking Frequency: 1-3 times last 30 days Amount used: 1 BAG Age of first use: 15 Date of last use: 11/26/18 Family Disease History - Family Disease History Family Disease History: Other: Father (alive and well, does drink alcohol), Mother (alive and well), Brother (1 brother) Admission Physical Exam [facility] - Vital Signs Vital Signs: Vital Signs - 24 hr 11/30/18 11:15 Temperature 98.5 F Pulse Rate 76 Respiratory 20 Rate Blood Pressure 117/76 - Physical General Appearance: Yes: Moderate Distress HEENTM: Yes: EOMI, Hearing grossly Normal, Normocephalic, LIN, Pharynx Normal, Tm's normal Respiratory: Yes: Chest Non-Tender, Lungs Clear, Normal Breath Sounds, No Respiratory Distress, No Accessory Muscle Use Neck: Yes: No masses,lesions,Nodules, Supple, Trachea in good position Breast: Yes: Breast Exam Deferred Cardiology: Yes: Regular Rhythm, Regular Rate, S1, S2 Abdominal: Yes: Normal Bowel Sounds, Non Tender, Flat Genitourinary: Yes: Within Normal Limits Back: Yes: Normal Inspection Musculoskeletal: Yes: full range of Motion, Gait Steady, Pelvis Stable Extremities: Yes: Within Normal Limits Neurological: Yes: dragsaw operator II-XII NML intact, Fully Oriented, Alert, Motor Strength 5/5, Normal Mood/Affect, Depressed Affect Integumentary: Yes: Normal Color, Warm Lymphatic: Yes: Within Normal Limits - Diagnostic (1) Opioid withdrawal Current Visit: Yes Status: Acute (2) Pain Current Visit: Yes Status: Acute (3) ADHD Current Visit: Yes Status: Chronic (4) Alcohol use disorder Current Visit: Yes Status: Chronic (5) History of palpitations Current Visit: Yes Status: Chronic (6) Opiate dependence Current Visit: Yes Status: Chronic Qualifiers: Substance use status: in withdrawal Qualified Code(s): F11.23 - Opioid dependence with withdrawal (7) Sedative hypnotic or anxiolytic dependence Current Visit: Yes Status: Chronic Cleared for Admission [facility] - Detox or Rehab [facility] Level of Care: Medically Managed Detox Regimen/Protocol: Methadone/Librium Breathalyzer - Breathalyzer Breathalyzer: 0 (last drank 1 day ago) Vital Signs - Vital Signs Vital signs refused: No Temperature: 98.5 F Temperature source: Oral Pulse Rate: 76 Respiratory Rate: 20 Blood Pressure: 117/76 BP Location: Left Arm Blood Pressure position: Sitting - Height Height: 5 ft 10 in - Weight Weight: 125 lb Weight measurement method: Standing scale - BMI Body Mass Index (BMI): 17.9 - Bowel Function Bowel Movement: No Urine Drug Screen - Test Device Lot number: [id number] Expiration date: 08/02/20 - Control Is test valid?: Yes - Results Drug screen NEGATIVE: No Urine drug screen results: BUP-Suboxone, BZO-Benzodiazepines, MOP-Opiates, THC- Marijuana Inpatient Rehab Admission - Rehab Decision to Admit Inpatient rehab admission?: No
[2018-11-30] MEDS ORDERED: METHOCARBAMOL 500 MG TABLET PO PRN (12:17)
[2018-11-30] MEDS ORDERED: ACETAMINOPHEN 325 MG TABLET (FP) PO PRN ×2 (12:17)
[2018-11-30] MEDS ORDERED: MENTHOL/PHENOL 1 EACH UD MM PRN (12:17)
[2018-11-30] MEDS ORDERED: MELATONIN 5 MG TABLETS PO PRN (12:17)
[2018-11-30] MEDS ORDERED: IBUPROFEN 400 MG TABLET (FP) PO PRN (12:17)
[2018-11-30] MEDS ORDERED: MAGNESIUM HYDROX 2400MG/30ML ORAL SUSPENSION 30 ML CUP PO PRN (12:17)
[2018-11-30] MEDS ORDERED: BISMUTH SUBSALICYLATE 524 MG/30 ML UD PO PRN (12:17)
[2018-11-30] MEDS ORDERED: hydrOXYzine PAMOATE 25 MG CAPSULE (FP) PO PRN (12:17)
[2018-11-30] MEDS ORDERED: MAGNESIUM CITRATE 300 ML BOTTLE PO PRN (12:17)
[2018-11-30] MEDS ORDERED: MAG HYDROX/AL HYDROX/SIMETH 30 ML UNIT-DOSE CUP PO PRN (12:17)
[2018-11-30] MEDS ORDERED: NICOTINE POLACRILEX 2 MG GUM BUC PRN (12:23)
[2018-11-30] MEDS ORDERED: LISDEXAMFETAMINE DIMESYLATE 30 MG PO SCH (12:30)
[2018-11-30 14:24] LABS: HEMATOCRIT 42.7 % (35.4-49); HEMOGLOBIN 14.4 GM/dL (11.7-16.9); MCH 29.6 pg (25.7-33.7); MCHC 33.8 g/dl (32.0-35.9); MEAN CELL VOLUME 87.6 fl (80-96); PLATELET COUNT 236 K/MM3 (134-434); RBC 4.88 M/mm3 (4.00-5.60); RDW 15.8 % (11.9-15.9); WHITE BLOOD COUNT 5.1 K/mm3 (4.0-10.0)
[2018-11-30] MEDS ORDERED: cloNIDine HCL 0.1 MG TABLET PO PRN (14:37)
[2018-11-30 14:46] LABS: ALBUMIN 3.9 g/dl (3.4-5.0); BILIRUBIN,TOTAL 1.2 mg/dL (0.2-1); BLOOD UREA NITROGEN 14.8 mg/dL (7-18); CALCIUM 9.6 mg/dL (8.5-10.1); CREATININE 0.8 mg/dL (0.55-1.3); POTASSIUM 4.1 mmol/L (3.5-5.1); TOT PROT 7.2 g/dl (6.4-8.2)
[2018-11-30] MEDS ORDERED: METHADONE HCL 10 MG TABLET (FOR DETOX USE ONLY) PO ONE (15:00)
[2018-11-30] MEDS: PANTOPRAZOLE 40 MG TABLET (FP) PO SCH (15:23)
[2018-11-30] MEDS: diazePAM 5 MG TABLET PO SCH ×2 (15:24→22:24)
[2018-11-30] MEDS: diazePAM 5 MG TABLET PO PRN (20:14)
[2018-11-30] MEDS: THIAMINE HCL 100 MG TABLET (FP) PO SCH (22:24)
[2018-12-01] MEDS: diazePAM 5 MG TABLET PO SCH ×3 (05:23→22:06)
[2018-12-01] MEDS ORDERED: METHADONE HCL 10 MG TABLET (FOR DETOX USE ONLY) ONE (08:24)
[2018-12-01] MEDS ORDERED: METHADONE HCL 5 MG TABLET (FOR DETOX USE ONLY) ONE (08:24)
[2018-12-01] MEDS ORDERED: METHADONE (DETOX) 20 MG, METHADONE (DETOX) 5 MG PO ONE (10:00)
[2018-12-01] MEDS: diazePAM 5 MG TABLET PO PRN ×2 (10:53→20:28)
[2018-12-01] MEDS: PRENATAL VITAMINS W/ FOLIC ACID TABLET (FP) PO SCH (10:53)
[2018-12-01] MEDS: PANTOPRAZOLE 40 MG TABLET (FP) PO SCH (10:53)
--- NOTE | 2018-12-01 12:11 | PN ---
[facility] CIWA - CIWA Score Nausea/Vomitin-Mild Nausea/No Vomiting (ensure supplement) Muscle Tremors: 4-Moderate,w/Arms Extend Anxiety: 4-Mod. Anxious/Guarded Agitation: 4-Moderately Restless Paroxysmal Sweats: 2 Orientation: 0-Oriented Tacttile Disturbances: 0-None Auditory Disturbances: 0-None Visual Disturbances: 0-None Headache: 0-None Present CIWA-Ar Total Score: 15 [facility] COWS - Scale Resting Pulse: 0= GA 80 or Below Sweatin= Chills/Flushing Restless Observation: 0= Sits Still Pupil Size: 0= Normal to Room Light Bone or Joint Aches: 2= Severe Diffuse Aches Runny Nose/ Eye Tearin= Nasal Congestion GI Upset > 30mins: 2= Nausea/Diarrhea (no diarrhea) Tremor Observation of Outstretched Hands: 2= Slight Tremor Visible Yawning Observation: 2= >3x During Session Anxiety or Irritability: 2=Irritable/Anxious Goose Flesh Skin: 3=Piloerection COWS Score: 15 S Progress Note (SOAP) Subjective: 28 years old male 2nd patient [facility] admission was admitted on 11/30/18 for alcohol benzo opiate withdrawal sx management doing well with valium and methadone detox regimen resting on bed tremor sweating abdominal cramping offer ensure supplement Objective: 12/01/18 12:14 Vital Signs Temperature 96.5 F L 12/01/18 09:08 Pulse Rate 75 12/01/18 09:08 Respiratory Rate 16 12/01/18 09:08 Blood Pressure 110/69 12/01/18 09:08 O2 Sat by Pulse Oximetry (%) Laboratory Last Values WBC 5.1 K/mm3 (4.0-10.0) 11/30/18 12:00 RBC 4.88 M/mm3 (4.00-5.60) 11/30/18 12:00 Hgb 14.4 GM/dL (11.7-16.9) 11/30/18 12:00 Hct 42.7 % (35.4-49) 11/30/18 12:00 MCV 87.6 fl (80-96) 11/30/18 12:00 MCH 29.6 pg (25.7-33.7) 11/30/18 12:00 MCHC 33.8 g/dl (32.0-35.9) 11/30/18 12:00 RDW 15.8 % (11.9-15.9) D 11/30/18 12:00 Plt Count 236 K/MM3 (134-434) D 11/30/18 12:00 MPV 8.0 fl (7.5-11.1) 11/30/18 12:00 Sodium 139 mmol/L (136-145) 11/30/18 12:00 Potassium 4.1 mmol/L (3.5-5.1) 11/30/18 12:00 Chloride 103 mmol/L (98-107) 11/30/18 12:00 Carbon Dioxide 27 mmol/L (21-32) 11/30/18 12:00 Anion Gap 8 MMOL/L (8-16) 11/30/18 12:00 BUN 14.8 mg/dL (7-18) 11/30/18 12:00 Creatinine 0.8 mg/dL (0.55-1.3) 11/30/18 12:00 Est GFR (CKD-EPI)AfAm 140.90 11/30/18 12:00 Est GFR (CKD-EPI)NonAf 121.57 11/30/18 12:00 Random Glucose 112 mg/dL (74-106) H 11/30/18 12:00 Calcium 9.6 mg/dL (8.5-10.1) 11/30/18 12:00 Total Bilirubin 1.2 mg/dL (0.2-1) H 11/30/18 12:00 AST 16 U/L (15-37) 11/30/18 12:00 ALT 23 U/L (13-61) 11/30/18 12:00 Alkaline Phosphatase 70 U/L (45-117) 11/30/18 12:00 Total Protein 7.2 g/dl (6.4-8.2) 11/30/18 12:00 Albumin 3.9 g/dl (3.4-5.0) 11/30/18 12:00 RPR Titer Nonreactive (NONREACTIVE) 11/30/18 12:00 HIV 1&2 Ag/Ab, 4th Gen Non reactive (Non Reactive) 11/30/18 11:00 HIV 1&2 Antibody Screen Cancelled 11/30/18 12:50 HIV P24 Antigen Cancelled 11/30/18 12:50 lab noted Assessment: 12/01/18 12:14 alcohol benzo opiate withdrawal sx alert oriented x 3 speech clearly good eye contact when offer ensure and anti muscles spasmsant Plan: continue valium and methadone detox regimen
--- NOTE | 2018-12-01 12:21 | CONSULT ---
[facility] Psychiatric Consult - Data Date of interview: 12/01/18 Admission source: [facility] Identifying data: Filtration Operator approched patient twice for psychiatric consultation but patient refused to see play writer. Patient stated, "i'm too tired to talk. I don 't have to see you." Psychiatric consultation refused.
[2018-12-01] MEDS: THIAMINE HCL 100 MG TABLET (FP) PO SCH (22:06)
[2018-12-02] MEDS: diazePAM 5 MG TABLET PO PRN ×2 (01:29→22:01)
[2018-12-02] MEDS: diazePAM 5 MG TABLET PO SCH ×2 (05:23→17:48)
[2018-12-02] MEDS ORDERED: METHADONE HCL 10 MG TABLET (FOR DETOX USE ONLY) PO ONE (10:00)
[2018-12-02] MEDS: PANTOPRAZOLE 40 MG TABLET (FP) PO SCH (10:22)
[2018-12-02] MEDS: PRENATAL VITAMINS W/ FOLIC ACID TABLET (FP) PO SCH (10:22)
--- NOTE | 2018-12-02 11:08 | PN ---
S CIWA - CIWA Score Nausea/Vomitin Muscle Tremors: 2 Anxiety: 3 Agitation: 3 Paroxysmal Sweats: No Perspiration Orientation: 0-Oriented Tacttile Disturbances: 0-None Auditory Disturbances: 0-None Visual Disturbances: 0-None Headache: 1-Very Mild CIWA-Ar Total Score: 11 [facility] COWS - Scale Resting Pulse: 0= SC 80 or Below Sweatin= Chills/Flushing Restless Observation: 1= Difficult to Sit Still Pupil Size: 1= Pupils >than Normal Bone or Joint Aches: 2= Severe Diffuse Aches Runny Nose/ Eye Tearin= Nasal Congestion GI Upset > 30mins: 1= Stomach Cramp Tremor Observation of Outstretched Hands: 1= Tremor [place], Not Seen Yawning Observation: 1= 1-2x During Session Anxiety or Irritability: 2=Irritable/Anxious Goose Flesh Skin: 0=Smooth Skin COWS Score: 11 [facility] Progress Note (SOAP) Subjective: alert,irritable,anxious,interrupted sleep,pain in the body and back, Objective: 12/02/18 11:07 Vital Signs Temperature 97.3 F L 12/02/18 09:46 Pulse Rate 72 12/02/18 09:46 Respiratory Rate 18 12/02/18 09:46 Blood Pressure 124/87 12/02/18 09:46 O2 Sat by Pulse Oximetry (%) Laboratory Last Values WBC 5.1 K/mm3 (4.0-10.0) 11/30/18 12:00 RBC 4.88 M/mm3 (4.00-5.60) 11/30/18 12:00 Hgb 14.4 GM/dL (11.7-16.9) 11/30/18 12:00 Hct 42.7 % (35.4-49) 11/30/18 12:00 MCV 87.6 fl (80-96) 11/30/18 12:00 MCH 29.6 pg (25.7-33.7) 11/30/18 12:00 MCHC 33.8 g/dl (32.0-35.9) 11/30/18 12:00 RDW 15.8 % (11.9-15.9) D 11/30/18 12:00 Plt Count 236 K/MM3 (134-434) D 11/30/18 12:00 MPV 8.0 fl (7.5-11.1) 11/30/18 12:00 Sodium 139 mmol/L (136-145) 11/30/18 12:00 Potassium 4.1 mmol/L (3.5-5.1) 11/30/18 12:00 Chloride 103 mmol/L (98-107) 11/30/18 12:00 Carbon Dioxide 27 mmol/L (21-32) 11/30/18 12:00 Anion Gap 8 MMOL/L (8-16) 11/30/18 12:00 BUN 14.8 mg/dL (7-18) 11/30/18 12:00 Creatinine 0.8 mg/dL (0.55-1.3) 11/30/18 12:00 Est GFR (CKD-EPI)AfAm 140.90 11/30/18 12:00 Est GFR (CKD-EPI)NonAf 121.57 11/30/18 12:00 Random Glucose 112 mg/dL (74-106) H 11/30/18 12:00 Calcium 9.6 mg/dL (8.5-10.1) 11/30/18 12:00 Total Bilirubin 1.2 mg/dL (0.2-1) H 11/30/18 12:00 AST 16 U/L (15-37) 11/30/18 12:00 ALT 23 U/L (13-61) 11/30/18 12:00 Alkaline Phosphatase 70 U/L (45-117) 11/30/18 12:00 Total Protein 7.2 g/dl (6.4-8.2) 11/30/18 12:00 Albumin 3.9 g/dl (3.4-5.0) 11/30/18 12:00 RPR Titer Nonreactive (NONREACTIVE) 11/30/18 12:00 HIV 1&2 Ag/Ab, 4th Gen Non reactive (Non Reactive) 11/30/18 11:00 HIV 1&2 Antibody Screen Cancelled 11/30/18 12:50 HIV P24 Antigen Cancelled 11/30/18 12:50 Assessment: 12/02/18 11:07 withdrawal symptom Plan: continue detox
--- NOTE | 2018-12-02 11:12 | PN ---
[facility] Progress Note Note: patient did not want to complete treatment,all attempts to convince patient to stay with no avail, the high risk of relapsing explained,patient signed out against medical advise, advise to call 911 if not feeling well,the risk of leaving including explained patient alert,oriented x 3
--- NOTE | 2018-12-02 11:15 | DS ---
[facility] Detox Discharge Summary Admission Date: 11/30/18 Discharge Date: 12/02/18 - History Present History: Alcohol Dependence, Opioid Dependence, Sedative Dependence, Pcp Dependence Additional Comments: patient signed release AMA - Physical Exam Results Vital Signs: Vital Signs Temperature 97.3 F L 12/02/18 09:46 Pulse Rate 72 12/02/18 09:46 Respiratory Rate 18 12/02/18 09:46 Blood Pressure 124/87 12/02/18 09:46 O2 Sat by Pulse Oximetry (%) Pertinent Admission Physical Exam Findings: withdrawal signs and symptom - Medication Discharge Medications: Ambulatory Orders Clonazepam [Klonopin] 1 mg PO BID 10/12/15 Lisdexamfetamine Dimesylate [Vyvanse] 30 mg PO DAILY 10/13/18 Pantoprazole Sodium 40 mg PO DAILY 11/30/18 - Diagnosis (1) Opioid withdrawal Current Visit: Yes Status: Acute (2) Alcohol use disorder Current Visit: Yes Status: Chronic (3) Sedative hypnotic or anxiolytic dependence Current Visit: Yes Status: Chronic (4) PCP abuse Current Visit: Yes Status: Acute - AMA Did Patient Leave Against Medical Advice: Yes
--- NOTE | 2018-12-02 14:37 | PN ---
S Progress Note Note: patient changed his mind did not want to leave,rash of right neck,lidex cream 1% cream bid
[2018-12-02] MEDS: THIAMINE HCL 100 MG TABLET (FP) PO SCH (22:01)
[2018-12-02] MEDS: FLUOCINONIDE 0.05% CREAM (60 GM TUBE) TP SCH (22:02)
[2018-12-03] MEDS: diazePAM 5 MG TABLET PO PRN ×2 (03:19→10:09)
[2018-12-03] MEDS ORDERED: diazePAM 5 MG TABLET PO ONE (06:00)
[2018-12-03] MEDS ORDERED: METHADONE HCL 5 MG TABLET (FOR DETOX USE ONLY) ONE (09:21)
[2018-12-03] MEDS ORDERED: METHADONE HCL 10 MG TABLET (FOR DETOX USE ONLY) ONE (09:21)
[2018-12-03] MEDS ORDERED: METHADONE (DETOX) 10 MG, METHADONE (DETOX) 5 MG PO ONE (10:00)
[2018-12-03] MEDS: FLUOCINONIDE 0.05% CREAM (60 GM TUBE) TP SCH ×2 (10:09→21:21)
[2018-12-03] MEDS: PANTOPRAZOLE 40 MG TABLET (FP) PO SCH (10:09)
[2018-12-03] MEDS: PRENATAL VITAMINS W/ FOLIC ACID TABLET (FP) PO SCH (10:09)
--- NOTE | 2018-12-03 15:44 | PN ---
S CIWA - CIWA Score Nausea/Vomitin-No Nausea/No Vomiting Muscle Tremors: 3 Anxiety: 4-Mod. Anxious/Guarded Agitation: 3 Paroxysmal Sweats: 1-Minimal Palms Moist Orientation: 0-Oriented Tacttile Disturbances: 0-None Auditory Disturbances: 0-None Visual Disturbances: 0-None Headache: 2-Mild CIWA-Ar Total Score: 13 BHS COWS - Scale Resting Pulse: 0= [place] 80 or Below Sweatin= Chills/Flushing Restless Observation: 0= Sits Still Pupil Size: 0= Normal to Room Light Bone or Joint Aches: 4=Acute Joint/Muscle Pain Runny Nose/ Eye Tearin= None GI Upset > 30mins: 0= None Tremor Observation of Outstretched Hands: 2= Slight Tremor Visible Yawning Observation: 1= 1-2x During Session Anxiety or Irritability: 2=Irritable/Anxious Goose Flesh Skin: 0=Smooth Skin COWS Score: 10 BHS Progress Note (SOAP) Subjective: Pt is a 28 y/o male admitted for heroin an dbenzo detox. Pt c/o headache,tremors ,chills,anxiety,body aches and intermittent sleep. OOB ambulating with steady gait. Objective: Alert o x 3. OOB, NAD. 12/03/18 16:52 Vital Signs - 24 hr 12/02/18 12/02/18 12/03/18 17:58 21:34 03:30 Temperature 96.8 F L 96.8 F L Pulse Rate 71 73 Respiratory 16 18 18 Rate Blood Pressure 115/70 108/73 12/03/18 12/03/18 12/03/18 06:08 09:11 13:07 Temperature 97.7 F 97.0 F L 98.5 F Pulse Rate 61 71 18 L Respiratory 18 18 62 H Rate Blood Pressure 104/71 110/72 111/77 12/03/18 13:18 Temperature 98.5 F Pulse Rate 62 Respiratory 18 Rate Blood Pressure 111/77 Laboratory Tests 11/30/18 11/30/18 11/30/18 11:00 12:00 12:00 WBC 5.1 RBC 4.88 Hgb 14.4 Hct 42.7 MCV 87.6 MCH 29.6 MCHC 33.8 RDW 15.8 D Plt Count 236 D MPV 8.0 Sodium 139 Potassium 4.1 Chloride 103 Carbon Dioxide 27 Anion Gap 8 BUN 14.8 Creatinine 0.8 Est GFR (CKD-EPI)AfAm 140.90 Est GFR (CKD-EPI)NonAf 121.57 Random Glucose 112 H Calcium 9.6 Total Bilirubin 1.2 H AST 16 ALT 23 Alkaline Phosphatase 70 Total Protein 7.2 Albumin 3.9 RPR Titer HIV 1&2 Ag/Ab, 4th Gen Non reactive HIV 1&2 Antibody Screen HIV P24 Antigen 11/30/18 11/30/18 12:00 12:50 WBC RBC Hgb Hct MCV MCH MCHC RDW Plt Count MPV Sodium Potassium Chloride Carbon Dioxide Anion Gap BUN Creatinine Est GFR (CKD-EPI)AfAm Est GFR (CKD-EPI)NonAf Random Glucose Calcium Total Bilirubin AST ALT Alkaline Phosphatase Total Protein Albumin RPR Titer Nonreactive HIV 1&2 Ag/Ab, 4th Gen HIV 1&2 Antibody Screen Cancelled HIV P24 Antigen Cancelled 12/03/18 16:56 Assessment: 12/03/18 16:53 withdrawal sx Plan: continue detox methadone taper Increase po fluids Melatonin 5 mg po hs prn
[2018-12-03] MEDS: THIAMINE HCL 100 MG TABLET (FP) PO SCH (21:21)
[2018-12-04] MEDS ORDERED: METHADONE HCL 10 MG TABLET (FOR DETOX USE ONLY) PO ONE (10:00)
--- NOTE | 2018-12-04 10:14 | PN ---
S CIWA - CIWA Score Nausea/Vomitin-No Nausea/No Vomiting Muscle Tremors: 2 Anxiety: 3 Agitation: 2 Paroxysmal Sweats: 1-Minimal Palms Moist Orientation: 0-Oriented Tacttile Disturbances: 0-None Auditory Disturbances: 0-None Visual Disturbances: 0-None Headache: 0-None Present CIWA-Ar Total Score: 8 BHS COWS - Scale Resting Pulse: 0= [place] 80 or Below Sweatin= Chills/Flushing Restless Observation: 0= Sits Still Pupil Size: 0= Normal to Room Light Bone or Joint Aches: 1= Mild Discomfort Runny Nose/ Eye Tearin= Nasal Congestion GI Upset > 30mins: 1= Stomach Cramp Tremor Observation of Outstretched Hands: 1= Tremor [place], Not Seen Yawning Observation: 2= >3x During Session Anxiety or Irritability: 1=Feels Anxious/Irritable Goose Flesh Skin: 0=Smooth Skin COWS Score: 8 S Progress Note (SOAP) Subjective: 28 years old male second patient [facility] admission was admitted on 11/28/18 for acute benzo and opiate withdrawal sx management doing well with valium and methadone detox regimen sleep better at night well-rested ambulating on hallway social with peers discuss aftercare with staff prefers returning to methadone program "may be" Objective: 12/04/18 10:17 Vital Signs Temperature 97.4 F L 12/04/18 09:42 Pulse Rate 78 12/04/18 09:42 Respiratory Rate 18 12/04/18 09:42 Blood Pressure 119/80 12/04/18 09:42 O2 Sat by Pulse Oximetry (%) Laboratory Last Values WBC 5.1 K/mm3 (4.0-10.0) 11/30/18 12:00 RBC 4.88 M/mm3 (4.00-5.60) 11/30/18 12:00 Hgb 14.4 GM/dL (11.7-16.9) 11/30/18 12:00 Hct 42.7 % (35.4-49) 11/30/18 12:00 MCV 87.6 fl (80-96) 11/30/18 12:00 MCH 29.6 pg (25.7-33.7) 11/30/18 12:00 MCHC 33.8 g/dl (32.0-35.9) 11/30/18 12:00 RDW 15.8 % (11.9-15.9) D 11/30/18 12:00 Plt Count 236 K/MM3 (134-434) D 11/30/18 12:00 MPV 8.0 fl (7.5-11.1) 11/30/18 12:00 Sodium 139 mmol/L (136-145) 11/30/18 12:00 Potassium 4.1 mmol/L (3.5-5.1) 11/30/18 12:00 Chloride 103 mmol/L (98-107) 11/30/18 12:00 Carbon Dioxide 27 mmol/L (21-32) 11/30/18 12:00 Anion Gap 8 MMOL/L (8-16) 11/30/18 12:00 BUN 14.8 mg/dL (7-18) 11/30/18 12:00 Creatinine 0.8 mg/dL (0.55-1.3) 11/30/18 12:00 Est GFR (CKD-EPI)AfAm 140.90 11/30/18 12:00 Est GFR (CKD-EPI)NonAf 121.57 11/30/18 12:00 Random Glucose 112 mg/dL (74-106) H 11/30/18 12:00 Calcium 9.6 mg/dL (8.5-10.1) 11/30/18 12:00 Total Bilirubin 1.2 mg/dL (0.2-1) H 11/30/18 12:00 AST 16 U/L (15-37) 11/30/18 12:00 ALT 23 U/L (13-61) 11/30/18 12:00 Alkaline Phosphatase 70 U/L (45-117) 11/30/18 12:00 Total Protein 7.2 g/dl (6.4-8.2) 11/30/18 12:00 Albumin 3.9 g/dl (3.4-5.0) 11/30/18 12:00 RPR Titer Nonreactive (NONREACTIVE) 11/30/18 12:00 HIV 1&2 Ag/Ab, 4th Gen Non reactive (Non Reactive) 11/30/18 11:00 HIV 1&2 Antibody Screen Cancelled 11/30/18 12:50 HIV P24 Antigen Cancelled 11/30/18 12:50 lab noted Assessment: 12/04/18 10:17 benzo and opiate withdrawal sx alert oriented x 3 12/04/18 10:18 cardiac S1S2 regular rate and rhythm pulmonary breath ease and frida Plan: continue valium and methadone detox regimen
[2018-12-04] MEDS: PRENATAL VITAMINS W/ FOLIC ACID TABLET (FP) PO SCH (10:22)
[2018-12-04] MEDS: PANTOPRAZOLE 40 MG TABLET (FP) PO SCH (10:22)
[2018-12-04] MEDS: FLUOCINONIDE 0.05% CREAM (60 GM TUBE) TP SCH ×3 (10:23→23:09)
[2018-12-04 21:34] VITALS: BP 115/93; PULSE 91; TEMP 97.2
[2018-12-04] MEDS: THIAMINE HCL 100 MG TABLET (FP) PO SCH (23:09)
[2018-12-05] MEDS ORDERED: METHADONE HCL 5 MG TABLET (FOR DETOX USE ONLY) PO ONE (06:00)
--- NOTE | 2018-12-05 09:35 | DS ---
[facility] Detox Discharge Summary Admission Date: 11/30/18 Discharge Date: 12/05/18 - History Present History: Opioid Dependence, Sedative Dependence Additional Comments: 28 years old male [address] [facility] was admitted on 11/28/18 for benzo and opiate withdrawal sx management did well with valium and methadone detox regimen no complication through out the detox stay refused to be seen by psychiatrist ambivalent about detox but completed today prefers returning to [facility] for benzo and opiate dependent Pertinent Past History: attention deficit patient receiving clonopin 1 mg po bid every two weeks last filled 11/21/18 - Physical Exam Results Vital Signs: Vital Signs Temperature 97.2 F L 12/04/18 21:32 Pulse Rate 91 H 12/04/18 21:32 Respiratory Rate 18 12/05/18 00:30 Blood Pressure 115/93 12/04/18 21:32 O2 Sat by Pulse Oximetry (%) Pertinent Admission Physical Exam Findings: benzo and opiate withdrawal sx Laboratory Last Values WBC 5.1 K/mm3 (4.0-10.0) 11/30/18 12:00 RBC 4.88 M/mm3 (4.00-5.60) 11/30/18 12:00 Hgb 14.4 GM/dL (11.7-16.9) 11/30/18 12:00 Hct 42.7 % (35.4-49) 11/30/18 12:00 MCV 87.6 fl (80-96) 11/30/18 12:00 MCH 29.6 pg (25.7-33.7) 11/30/18 12:00 MCHC 33.8 g/dl (32.0-35.9) 11/30/18 12:00 RDW 15.8 % (11.9-15.9) D 11/30/18 12:00 Plt Count 236 K/MM3 (134-434) D 11/30/18 12:00 MPV 8.0 fl (7.5-11.1) 11/30/18 12:00 Sodium 139 mmol/L (136-145) 11/30/18 12:00 Potassium 4.1 mmol/L (3.5-5.1) 11/30/18 12:00 Chloride 103 mmol/L (98-107) 11/30/18 12:00 Carbon Dioxide 27 mmol/L (21-32) 11/30/18 12:00 Anion Gap 8 MMOL/L (8-16) 11/30/18 12:00 BUN 14.8 mg/dL (7-18) 11/30/18 12:00 Creatinine 0.8 mg/dL (0.55-1.3) 11/30/18 12:00 Est GFR (CKD-EPI)AfAm 140.90 11/30/18 12:00 Est GFR (CKD-EPI)NonAf 121.57 11/30/18 12:00 Random Glucose 112 mg/dL (74-106) H 11/30/18 12:00 Calcium 9.6 mg/dL (8.5-10.1) 11/30/18 12:00 Total Bilirubin 1.2 mg/dL (0.2-1) H 11/30/18 12:00 AST 16 U/L (15-37) 11/30/18 12:00 ALT 23 U/L (13-61) 11/30/18 12:00 Alkaline Phosphatase 70 U/L (45-117) 11/30/18 12:00 Total Protein 7.2 g/dl (6.4-8.2) 11/30/18 12:00 Albumin 3.9 g/dl (3.4-5.0) 11/30/18 12:00 RPR Titer Nonreactive (NONREACTIVE) 11/30/18 12:00 HIV 1&2 Ag/Ab, 4th Gen Non reactive (Non Reactive) 11/30/18 11:00 HIV 1&2 Antibody Screen Cancelled 11/30/18 12:50 HIV P24 Antigen Cancelled 11/30/18 12:50 lab noted patient agrees bringing in medication list and lab result to [facility] for follow up - Treatment Hospital Course: Detox Protocol Followed, Detoxed Safely, Responded well, Discharged Condition Good, Rehab Referral Accepted Patient has Accepted a Rehab Referral to: [facility] - Medication Discharge Medications: Ambulatory Orders Clonazepam [Klonopin] 1 mg PO BID 10/12/15 Lisdexamfetamine Dimesylate [Vyvanse] 30 mg PO DAILY 10/13/18 Pantoprazole Sodium 40 mg PO DAILY 11/30/18 - Diagnosis (1) Opiate dependence Current Visit: Yes Status: Acute Qualifiers: Substance use status: uncomplicated Qualified Code(s): F11.20 - Opioid dependence, uncomplicated (2) Sedative hypnotic or anxiolytic dependence Current Visit: Yes Status: Acute - AMA Did Patient Leave Against Medical Advice: No CIWA Score - CIWA Score Nausea/Vomitin-No Nausea/No Vomiting Muscle Tremors: 1-None Visible, but [place] Anxiety: 3 Agitation: 1-Slight > Activity Paroxysmal Sweats: No Perspiration Orientation: 0-Oriented Tacttile Disturbances: 0-None Auditory Disturbances: 0-None Visual Disturbances: 0-None Headache: 0-None Present CIWA-Ar Total Score: 5 COWS (PN) - Opiate Withdrawal Resting Pulse: 1= [place] 81-100 Sweatin= Chills/Flushing Restless Observation: 0= Sits Still Pupil Size: 0= Normal to Room Light Bone or Joint Aches: 1= Mild Discomfort Runny Nose/ Eye Tearin= None GI Upset > 30mins: 0= None Tremor Observation of Outstretched Hands: 1= Tremor [place], Not Seen Yawning Observation: 1= 1-2x During Session Anxiety or Irritability: 1=Feels Anxious/Irritable Goose Flesh Skin: 0=Smooth Skin COWS Score: 6
== END 2018-12-05 09:31 | disposition home or self-care (01) | DRG 897 ==
LOC: YASAS 11:13 → Y3N 12:56
PROVIDERS: ADMIT Surgery; ATTEND Surgery
PROC: HZ2ZZZZ Detoxification Services for Substance Abuse Treatment (ICD-10-PCS; principal; 2018-11-30)
DX: F11.23 Opioid dependence with withdrawal (principal); F13.230 Sedative, hypnotic or anxiolytic dependence with withdrawal, uncomplicated; F10.10 Alcohol abuse, uncomplicated; F16.10 Hallucinogen abuse, uncomplicated; F17.210 Nicotine dependence, cigarettes, uncomplicated; F90.9 Attention-deficit hyperactivity disorder, unspecified type; R21 Rash and other nonspecific skin eruption; Z86.69 Personal history of other diseases of the nervous system and sense organs
CPT/HCPCS: 36415; 80053; 85027; 86593; 87389

== ENCOUNTER 2019-01-14 19:44 | Emergency (ER) | payer OTHER ==
[2019-01-14 19:54] VITALS: BMI 16.6
[2019-01-14] MEDS ORDERED: SODIUM CHLORIDE 1,000 ML IV STA (20:14)
[2019-01-14] MEDS ORDERED: DEXTROSE 5%-NORMAL SALINE 1,000 ML IV ONE (20:14)
[2019-01-14] MEDS ORDERED: ACETAMINOPHEN 1000 MG/100 ML VIAL (NON FORMULARY) IVPB ONE (20:14)
--- NOTE | 2019-01-14 20:14 | PDOC ---
History of Present Illness - General Chief Complaint: Loss of Appetite Stated Complaint: SICK Time Seen by Provider: 01/14/19 20:02 History Source: Patient Exam Limitations: No Limitations, Clinical Condition - History of Present Illness Initial Comments: Jai Luo is a 29 yo M w a hx of traumatic rhabdomyolysis, polysubstance abuse, IVDU, cyclic vomiting, hypotestosteronism, ADHD, anxiety, depression, and bipolar affective disorder who presents to the [facility] er with his mother and significant bilateral lower abdominal pain which radiates to his genital region. The mother is concerned that the patient has been losing a significant amount of weight and is experiencing failure to thrive. The patient agrees with his mother and says he has lost 15 pounds in the past month. He also states he is hungry and would like to have some food given to him in the ER. The patient states he has not been sexually active in the past month. He also states that he has not used any recent IV drugs but the patient has a significant amount of track lambert on both arms. He endorses diffuse pain all over his body including his abdomen, chest, back, head, legs, and arms. He also endorses dysuria, frequency, and urgency. Denies recent fevers, chills, or infections. PCP: None Allergies: Lamotrigine, penicillins Social Hx: Former IVDU. Used heroin, alcohol, cigarettes, marijuana PSH: None reported Past History - Past Medical History Allergies/Adverse Reactions: Allergies Allergy/AdvReac Type Severity Reaction Status Date / Time lamotrigine [From Lamictal] Allergy Verified 01/14/19 19:54 Penicillins Allergy Verified 01/14/19 19:54 Home Medications: Ambulatory Orders Clonazepam [Klonopin] 1 mg PO BID 10/12/15 Lisdexamfetamine Dimesylate [Vyvanse] 30 mg PO DAILY 10/13/18 Anemia: No Asthma: No Cancer: No Cardiac Disorders: No CVA: No COPD: No CHF: No Dementia: No Diabetes: No GI Disorders: No Disorders: No HTN: No Hypercholesterolemia: No Kidney Stones: No Liver Disease: No Psychiatric Problems: Yes (Bi-polar) Seizures: No Thyroid Disease: No - Surgical History Abdominal Surgery: No Appendectomy: No Cardiac Surgery: No Cholecystectomy: No Lung Surgery: No Neurologic Surgery: No Orthopedic Surgery: No - Reproductive History Testicular Surgery: No - Psycho Social/Smoking Cessation Hx Smoking History: Current some day smoker Have you smoked in the past 12 months: Yes Number of Cigarettes Smoked Daily: 3 Information on smoking cessation initiated: No 'Breaking Loose' booklet given: 11/30/18 Hx Alcohol Use: No Drug/Substance Use Hx: No Substance Use Type: Alcohol Hx Substance Use Treatment: Yes Review of Systems - Review of Systems Able to Perform ROS?: Yes Comments:: CONSTITUTIONAL: Present: generalized weakness, malaise, loss of appetite Absent: fever, chills, diaphoresis HEENT: Absent: rhinorrhea, nasal congestion, throat pain, throat swelling, difficulty swallowing, mouth swelling, ear pain, eye pain, visual Changes CARDIOVASCULAR: Present: Chest pain Absent: syncope, palpitations, irregular heart rate, lightheadedness, peripheral edema RESPIRATORY: Absent: cough, shortness of breath, dyspnea with exertion, orthopnea, wheezing, stridor, hemoptysis GASTROINTESTINAL: Present: Abdominal pain Absent: abdominal distension, nausea, vomiting, diarrhea, constipation, melena, hematochezia GENITOURINARY: Present: dysuria, flank pain, genital pain Absent: frequency, urgency, hesitancy, hematuria MUSCULOSKELETAL: Present: myalgia, arthralgia Absent: joint swelling SKIN: Present: rash, itching, pallor HEMATOLOGIC/IMMUNOLOGIC: Absent: easy bleeding, easy bruising, lymphadenopathy, frequent infections ENDOCRINE: Present: Unexplained weight loss Absent: unexplained weight gain, heat intolerance, cold intolerance NEUROLOGIC: Absent: headache, focal weakness or paresthesias, dizziness, unsteady gait, seizure, mental status changes, bladder or bowel incontinence PSYCHIATRIC: Present: anxiety, depression, hallucinations. Absent: suicidal or homicidal ideation *Physical Exam - Vital Signs Last Vital Signs Temp Pulse Resp BP Pulse Ox 98.3 F 116 H 19 128/92 100 01/14/19 19:51 01/14/19 19:51 01/14/19 19:51 01/14/19 19:51 01/14/19 19:51 - Physical Exam Comments: GENERAL: Patient appears very skinny and cachectic. Awake and alert. Moderate distress. HEENT: Normocephalic, atraumatic. PERRLA, EOMI. No conjunctival pallor. Sclera are non- icteric. Dry mucous membranes. Oropharynx is clear. NECK: Supple. Full ROM. No JVD. No thyromegaly. No lymphadenopathy. CARDIOVASCULAR: Tachycardic rate and regular rhythm. No murmurs, rubs, or gallops. Distal pulses are 2+ and symmetric. PULMONARY: No evidence of respiratory distress. Lungs clear to auscultation bilaterally. No wheezing, rales or rhonchi. ABDOMINAL: The abdomen is tense and he has diffuse pain upon palpation. There is mild guarding but no rebound. MUSCULOSKELETAL Normal range of motion at all joints. No bony deformities or tenderness. No CVA tenderness. EXTREMITIES: Patient has track lambert on both arms. No cyanosis. No clubbing. No edema. No calf tenderness. SKIN: Warm and dry. Normal capillary refill. No jaundice. NEUROLOGICAL: Alert, awake, depressed affect. Cranial nerves 2-12 intact. No deficits to light touch in face, upper extremities and lower extremities. No motor deficits in the in face, upper extremities and lower extremities. Normal speech. Gait is normal without ataxia. PSYCHIATRIC: Cooperative. Good eye contact. Sad mood and affect. ED Treatment Course - LABORATORY CBC & Chemistry Diagram: 01/14/19 20:36 01/14/19 20:36 Medical Decision Making - Medical Decision Making Jai Luo is a 29 yo M w a hx of traumatic rhabdomyolysis, polysubstance abuse, IVDU, cyclic vomiting, hypotestosteronism, ADHD, anxiety, depression, and bipolar affective disorder who presents to the [facility] er with his mother and significant bilateral lower abdominal pain which radiates to his genital region. The mother is concerned that the patient has been losing a significant amount of weight and is experiencing failure to thrive. The patient agrees with his mother and says he has lost 15 pounds in the past month. He also states he is hungry and would like to have some food given to him in the ER. The patient states he has not been sexually active in the past month. He also states that he has not used any recent IV drugs but the patient has a significant amount of track lambert on both arms. He endorses diffuse pain all over his body including his abdomen, chest, back, head, legs, and arms. He also endorses dysuria, frequency, and urgency. Vital Signs Temp Pulse Resp BP Pulse Ox 98.3 F 116 H 19 128/92 100 01/14/19 19:51 01/14/19 19:51 01/14/19 19:51 01/14/19 19:51 01/14/19 19:51 DDx IBNLT: failure to thrive, electrolyte/metbaolic disturbance, UTI/pylo, HIV, Rich, opiate withdrawal Plan: EKG, Labs, Urine, HIV testing, IV hydration, analgesia, re-assess. EKG: Poor data quality, NS rate of 84, narrow complexes, normal axis, no hypertrophy, no ST elevations or depressions but benign early repol, no abnormal TWI's Labs: Unremarkable - HIV negative Urine: unremarkable U-tox: Positive for opiates, PCP, benzo, and THC Re-assessment: Patient feels better after 1G of IV ativan - He is no longer tachycardic after receiving IL of saline - This is probably benzo vs opiate withdrawal - Called [facility] and they have a bed for the patient - Patient agrees to [facility] Disposition: [facility] Discharge - Discharge Information Problems reviewed: Yes Clinical Impression/Diagnosis: Dehydration Failure to thrive Qualifiers: Failure to thrive age range: in adult Qualified Code(s): R62.7 - Adult failure to thrive Condition: Improved Disposition: HOME - Admission No - Follow up/Referral Referrals: [facility] [Provider Group] - Patient Discharge Instructions Patient Printed Discharge Instructions: DI for Drug or Alcohol Withdrawal Additional Instructions: Go straight to [facility] from the ER. Come back immediately if you feel like using drugs again. You came into the ER with diffuse body pains. We believe you were experiencing an episode of withdrawal. We gave you a medication which made you feel better. Please make sure to follow up with your primary care doctor in the next 3 to 5 days and also your psyche doctor in the next week. Come back to the ER if your pain worsens, you get a fever or have any other new or worsening concerns. Thank you for coming to the [facility] ER. We hope you feel better soon! Print Language: BULGARIAN - Post Discharge Activity
[2019-01-14 20:42] LABS: BASO % 0.5 % (0-2.0); EOS % 0.7 % (0-4.5); HEMOGLOBIN 15.5 GM/dL (11.7-16.9); LYMPH % 19.8 % (8-40); MCH 29.5 pg (25.7-33.7); MCHC 34.5 g/dl (32.0-35.9); MEAN CELL VOLUME 85.7 fl (80-96); MEAN PLT VOLUME 7.5 fl (7.5-11.1); MONO % 7.6 % (3.8-10.2); NEUT % 71.4 % (42.8-82.8); PLATELET COUNT 240 K/MM3 (134-434); RBC 5.25 M/mm3 (4.00-5.60); RDW 13.1 % (11.9-15.9); WHITE BLOOD COUNT 6.6 K/mm3 (4.0-10.0)
[2019-01-14] MEDS ORDERED: ACETAMINOPHEN INJECTION 100 ML IVPB ONE (20:47)
[2019-01-14 21:07] LABS: PHOSPHOROUS 3.4 mg/dL (2.5-4.9)
[2019-01-14 21:09] LABS: ALBUMIN 4.3 g/dl (3.4-5.0); BLOOD UREA NITROGEN 16.2 mg/dL (7-18); CALCIUM 9.3 mg/dL (8.5-10.1); CREATININE 0.8 mg/dL (0.55-1.3); POTASSIUM 3.8 mmol/L (3.5-5.1); TOT PROT 7.4 g/dl (6.4-8.2)
[2019-01-14 21:17] LABS: INR 1.14 (0.83-1.09); PROTHROMBIN TIME (PATIENT) 13.5 SEC (9.7-13.0)
[2019-01-14] MEDS ORDERED: LORazepam 2 MG/ML SDV VIAL ONE (21:17)
--- NOTE | 2019-01-14 21:27 | PDOC ---
Documentation entered by Vika Pizarro SCRIBE, acting as scribe for Jai Amos MD. Jai Amos MD: This documentation has been prepared by the alysaibautumn, Vika Pizarro SCRIBE, under my direction and personally reviewed by me in its entirety. I confirm that the documentation accurately reflects all work, treatment, procedures, and medical decision making performed by me. Attending Attestation - Resident Resident Name: Carlyle Ricardo - ED Attending Attestation I have performed the following: I have examined & evaluated the patient, The case was reviewed & discussed with the resident, I agree w/resident's findings & plan, Exceptions are as noted - HPI HPI: 01/14/19 21:27 29 M with h/o traumatic rhabdomyolysis, polysubstance abuse, IVDU, cyclic vomiting, hypotestosteronism, ADHD, anxiety, depression, and bipolar disorder, presenting to ED with diffuse body pains and failure to thrive. Pt is brought in by his mother for poor appetite and significant weight loss. She states that the pt is not eating or drinking and has lost several pounds. This has been an ongoing issue for several months, and pt has been to different ERs for evaluation. No diagnosis has been given to her. Pt states that he simply has no appetite. He states that he takes marinol but still has no desire to eat. Pt has h/o IVDU, though mother believes he is currently only taking pills. Does not know what he takes. Pt admits to taking klonopin twice daily, last use was a few days ago. Denies any opiate abuse, though mother notes he takes percocet regularly. Pt currently endorses diffuse body pain. He states he has had this for several months. Pt denies SI/HI/AVH. Mother corroborates that pt has been at his baseline mentation, no signs of responding to internal stimuli. Triage nurse documented that pt has "hallucinations". However, upon clarification, mother reports that pt told triage nurse that he was afraid he had tape worms as the reason for his weight loss, which the nurse mistook for hallucinations. - Physicial Exam PE: 01/14/19 21:30 GENERAL: Awake, alert, and fully oriented, in no acute distress. HEAD: No signs of trauma EYES: PERRLA, EOMI, sclera anicteric, conjunctiva clear ENT: Auricles normal inspection, hearing grossly normal, nares patent, oropharynx clear without exudates. Moist mucosa NECK: Nontender, no stepoffs, Normal ROM, supple, no lymphadenopathy, JVD, or masses LUNGS: Breath sounds equal, clear to auscultation bilaterally. No wheezes, and no crackles HEART: Regular rate and rhythm, normal S1 and S2, no murmurs, rubs or gallops ABDOMEN: Soft, nontender, normoactive bowel sounds. No guarding, no rebound. No masses EXTREMITIES: Normal range of motion, no edema. No clubbing or cyanosis. No cords, erythema, or tenderness NEUROLOGICAL: Cranial nerves II through XII intact. 5/5 strength and sensation in all extremities, Normal speech, normal gait, normal cerebellar function SKIN: Warm, Dry, normal turgor, no rashes or lesions noted. PSYCH: Anxious affect, tremulous + tongue fasciculations - Medical Decision Making 01/14/19 21:31 29 M with failure to thrive with significant weight loss. On exam pt is tremulous with tongue fasciculations. Endorses full body pain but has benign physical exam. Suspicious for mild benzo/ETOH withdrawal. Possibly component of opiate withdrawal as well. - Labs - CXR, UA - Utox - Ativan IV 01/14/19 23:22 Bloodwork unremarkable Pt reassessed - states that his pain has resolved with medication. No longer tremulous. Pt ate tray of food in ED and tolerated it well. Vitals now normal 01/14/19 23:44 Discussed with pt option of referral to [facility] for detox. Pt is interested Confirmed bed availability. Will send pt to [facility] 01/15/19 00:34 Pt now refusing detox. Pt medically cleared for discharge but refusing to sign discharge papers, requesting pain medication. Pt is not actively withdrawing, has normal labs, with normal vitals and benign physical exam. No tremors or fasciculations. Pt ate two food trays and tolerated it well. Pt observed ambulating around ED with steady gait. Pt offered detox but declined. No indication at this time for hospital admission. Multiple attempts made to convince pt to go to detox. Discussed with pt and his mother the risks of continued drug abuse, including possibility of . Pt however states that he does not want to go to detox tonight. He states that he would rather go home. Pt is well appearing, with normal vitals. Clinically stable for DC at this time. I discussed the physical exam findings, ancillary test results and final diagnoses with the patient. I answered all of the patient's questions. The patient agrees to follow up with the primary care physician within 24-72 hours.
[2019-01-14 23:40] LABS: EPI CELLS 1.4 /HPF (0-5/HPF); HYALINE CASTS 7 /lpf (0-8); URINE APPEARANCE CLEAR; URINE BACTERIA 7.9 /hpf (NEGATIVE); URINE BILIRUBIN NEGATIVE (NEGATIVE); URINE COLOR YELLOW; URINE GLUCOSE (UA) NEGATIVE (NEGATIVE); URINE KETONE 1+ (NEGATIVE); URINE LEUK ESTERASE NEGATIVE (NEGATIVE); URINE NITRITE NEGATIVE (NEGATIVE); URINE PROTEIN 1+ (NEGATIVE); URINE RBC 2 /hpf (0-4); URINE WBC 5 /hpf (0-5)
[2019-01-14 23:52] VITALS: BP 110/66; PULSE 81; TEMP 98.8
[2019-01-14 23:54] LABS: COCAINE, UR NEGATIVE ng/ml (CUTOFF=300); METHADONE, UR NEGATIVE ng/ml (CUTOFF=300); URINE AMPHETAMINES NEGATIVE ng/ml (CUTOFF=500); URINE BARBITURATES NEGATIVE ng/ml (CUTOFF=200)
[2019-01-14 23:55] LABS: URINE BENZODIAZEPINES POSITIVE ng/ml (CUTOFF=200)
[2019-01-14 23:56] LABS: OPIATES, URI POSITIVE ng/ml (CUTOFF=300); PHENCYCLIDINE,URINE POSITIVE ng/ml (CUTOFF=25)
--- NOTE | 2019-01-15 21:59 | EKG ---
Test Reason : Blood Pressure : / mmHG Vent. Rate : 084 BPM Atrial Rate : 084 BPM P-R Int : 146 ms QRS Dur : 090 ms QT Int : 372 ms P-R-T Axes : 067 082 071 degrees QTc Int : 439 ms POOR DATA QUALITY, INTERPRETATION MAY BE ADVERSELY AFFECTED NORMAL SINUS RHYTHM NORMAL ECG WHEN COMPARED WITH ECG OF 19-OCT-2018 19:07, NO SIGNIFICANT CHANGE WAS FOUND Confirmed by Elida Collado ([id number]) on 01/15/2019 9:58:57 PM Referred By: Confirmed By:Elida Collado
== END 2019-01-15 00:35 | disposition home or self-care (01) ==
LOC: JER 19:44
PROC: 3E0337Z Introduction of Electrolytic and Water Balance Substance into Peripheral Vein, Percutaneous Approach (ICD-10-PCS; principal; 2019-01-14)
PROC: 3E033NZ Introduction of Analgesics, Hypnotics, Sedatives into Peripheral Vein, Percutaneous Approach (ICD-10-PCS; 2019-01-14)
PROC: 3E033NZ Introduction of Analgesics, Hypnotics, Sedatives into Peripheral Vein, Percutaneous Approach (ICD-10-PCS; 2019-01-14)
DX: E86.0 Dehydration (principal); R62.7 Adult failure to thrive; Z68.1 Body mass index [BMI] 19.9 or less, adult; F31.9 Bipolar disorder, unspecified; F90.9 Attention-deficit hyperactivity disorder, unspecified type; F41.8 Other specified anxiety disorders; E29.1 Testicular hypofunction; F19.10 Other psychoactive substance abuse, uncomplicated; Z88.0 Allergy status to penicillin; Z88.8 Allergy status to other drugs, medicaments and biological substances
CPT/HCPCS: 36415; 80053; 80307; 81003; 82550; 83605; 83690; 83735; 84100; 84484; 85025; 85610; 86140; 87389; 93005; 93010; 96361; 96374; 96375; 99284-25; J0131; J7030

== ENCOUNTER 2019-10-10 16:43 | Emergency (ER) | payer OTHER ==
[2019-10-10 16:55] VITALS: BMI 17.9
[2019-10-10 17:04] VITALS: BP 101/65; PULSE 96; TEMP 98.4
--- NOTE | 2019-10-10 17:22 | PDOC ---
Attending Attestation - Resident Resident Name: Alberto Jessica - HPI HPI: 10/10/19 18:18 patient presents to the ED complaining of a several week history of generalized malaise, nausea without vomiting and decreased appetite. Mother is also concerned because patient has been very fatigued and is sleeping a great deal. patient has extensive psychiatric history and is prescribed multiple medications which he is not taking. He is actively using heroin--last use was yesterday. Patient reports decreased appetite, but did eat pizza yesterday and is tolerating PO liquids. Patient had an episode of increased liver enzymes and rhabdo earlier this year which presented similarly. 10/10/19 18:19 - Physicial Exam PE: 10/10/19 18:30 Agree with resident exam. Patient is sleeping but easily arousable to loud voice. Lungs clear. CV: rrr no m/r/g abdomen: soft ,non tender non distended - Medical Decision Making 10/10/19 18:59 Pt presents to the ED complaining of increased sleepiness and fatigue. diff erential includes electrolyte imbalance, drug intoxication, less likely rhabdo. will check labs and reassess. Discharge - Discharge Information Problems reviewed: Yes Clinical Impression/Diagnosis: Chronic fatigue, Polysubstance abuse Condition: Stable Disposition: HOME - Follow up/Referral - Patient Discharge Instructions Additional Instructions: If you want drug rehab go to [facility] and take copies of your blood work with you. Return to the emergency department immediately with ANY new, persistent or worsening symptoms. Continue any medications as previously prescribed by your physician. You should follow up with your primary doctor as soon as possible regarding today's emergency department visit. . Please make sure your doctor reviews the results of your emergency evaluation. Thank you for coming to the Emergency Department today for your care. It was a pleasure to see you today. Please note that your evaluation is INCOMPLETE until you follow-up with your doctor. - Post Discharge Activity
--- NOTE | 2019-10-10 17:56 | PDOC ---
History of Present Illness - General Chief Complaint: Diarrhea Stated Complaint: NAUSEA, DIARRHEA Time Seen by Provider: 10/10/19 17:21 History Source: Patient Exam Limitations: No Limitations - History of Present Illness Initial Comments: Patient is a 29 year old male with history of bipolar disorder and IV heroin use presents with nausea/vomiting for the past few days. He also reports fever/chills, occasional yawning, diarrhea and excessive thirst. He has not taken his psych meds including the subutex because he states that they are "poison" and are "no good". Reports recent heroin use within the past few days and feels that he's currently withdrawing. Denies audio/visual hallucinations, SI/HI. Past History - Medical History Allergies/Adverse Reactions: Allergies Allergy/AdvReac Type Severity Reaction Status Date / Time lamotrigine [From Lamictal] Allergy Verified 10/10/19 16:45 Penicillins Allergy Verified 10/10/19 16:45 Home Medications: Ambulatory Orders Clonazepam [Klonopin] 1 mg PO BID 10/12/15 Lisdexamfetamine Dimesylate [Vyvanse] 30 mg PO DAILY 10/13/18 Anemia: No Asthma: No Cancer: No Cardiac Disorders: No CVA: No COPD: No CHF: No Dementia: No Diabetes: No GI Disorders: No Disorders: No HTN: No Hypercholesterolemia: No Kidney Stones: No Liver Disease: No Psychiatric Problems: Yes (Bi-polar, agitation,depression, anxiety) Seizures: No Thyroid Disease: No - Surgical History Abdominal Surgery: No Appendectomy: No Cardiac Surgery: No Cholecystectomy: No Lung Surgery: No Neurologic Surgery: No Orthopedic Surgery: No - Reproductive History Testicular Surgery: No - Psycho-Social/Smoking History Smoking History: Current every day smoker Have you smoked in the past 12 months: Yes Number of Cigarettes Smoked Daily: 1 Information on smoking cessation initiated: Yes 'Breaking Loose' booklet given: 11/30/18 - Substance Abuse Hx (Audit-C & DAST Scrn) How often the patient has a drink containing alcohol: 2-4 times / month Number of drinks the patient has on a typical day: 3 or 4 How often the patient has six or more drinks on one occasion: Less than monthly Score: In Men: 4 or > Positive; In Women: 3 or > Positive: 4 Screen Result (Pos requires Nsg. Audit-10AR): Positive In the last yr the pt used illegal drug/Rx for NonMed reason: Yes Score: Yes response is considered Positive: 1 Screen Result (Positive result requires Nsg. DAST-10): Positive *Physical Exam - Vital Signs Last Vital Signs Temp Pulse Resp BP Pulse Ox 98.4 F 96 H 20 101/65 99 10/10/19 16:44 10/10/19 16:44 10/10/19 16:44 10/10/19 16:44 10/10/19 16:44 ED Treatment Course - LABORATORY CBC & Chemistry Diagram: 10/10/19 18:47 10/10/19 18:18 Discharge - Discharge Information Problems reviewed: Yes Clinical Impression/Diagnosis: Chronic fatigue, Polysubstance abuse Condition: Stable Disposition: HOME - Follow up/Referral - Patient Discharge Instructions Additional Instructions: If you want drug rehab go to [facility] and take copies of your blood work with you. Return to the emergency department immediately with ANY new, persistent or worsening symptoms. Continue any medications as previously prescribed by your physician. You should follow up with your primary doctor as soon as possible regarding today's emergency department visit. . Please make sure your doctor reviews the results of your emergency evaluation. Thank you for coming to the Emergency Department today for your care. It was a pleasure to see you today. Please note that your evaluation is INCOMPLETE until you follow-up with your doctor. - Post Discharge Activity
[2019-10-10 18:50] LABS: BASO % 2.1 % (0-2.0); EOS % 0.1 % (0-4.5); HEMATOCRIT 41.7 % (35.4-49); HEMOGLOBIN 14.9 GM/dl (11.7-16.9); MCH 29.2 pg (25.7-33.7); MCHC 35.6 g/dl (32.0-35.9); MEAN PLT VOLUME 7.8 fl (7.5-11.1); MONO % 11.7 % (3.8-10.2); NEUT % 78.1 % (42.8-82.8); PLATELET COUNT 289 K/MM3 (134-434); RBC 5.09 M/mm3 (4.00-5.60); RDW 13.3 % (11.9-15.9); WHITE BLOOD COUNT 7.5 K/mm3 (4.0-10.8)
[2019-10-10 19:30] LABS: ALBUMIN 4.1 g/dl (3.4-5.0); BILIRUBIN,TOTAL 0.6 mg/dl (0.2-1); CALCIUM 9.3 mg/dl (8.5-10); CREATININE 0.5 mg/dl (0.55-1.3); POTASSIUM 3.7 mmol/L (3.5-5.1); TOT PROT 7.1 g/dl (6.4-8.2)
--- NOTE | 2019-10-10 20:26 | PDOC ---
*Physical Exam - Vital Signs Last Vital Signs Temp Pulse Resp BP Pulse Ox 98.4 F 96 H 20 101/65 99 10/10/19 16:44 10/10/19 16:44 10/10/19 16:44 10/10/19 16:44 10/10/19 16:44 ED Treatment Course - LABORATORY CBC & Chemistry Diagram: 10/10/19 18:47 10/10/19 18:18 - ADDITIONAL ORDERS Additional order review: Laboratory Results 10/10/19 18:18 Sodium 142 Potassium 3.7 Chloride 102 Carbon Dioxide 28 Anion Gap 12 BUN 11.0 Creatinine 0.5 L Est GFR (CKD-EPI)AfAm 169.73 Est GFR (CKD-EPI)NonAf 146.44 Random Glucose 112 H Calcium 9.3 Total Bilirubin 0.6 AST 17 ALT 22 Alkaline Phosphatase 69 Creatine Kinase 104 Total Protein 7.1 Albumin 4.1 10/10/19 18:47 RBC 5.09 MCV 82.0 MCHC 35.6 RDW 13.3 MPV 7.8 D Neutrophils % 78.1 Lymphocytes % 8.0 Monocytes % 11.7 H D Eosinophils % 0.1 Basophils % 2.1 H D ED Progress Note - Progress Note Progress Note: 10/10/19 20:23 This patient was transferred to n[facility] from Dr. Bonilla at 1900 hrs. Patient is a 29-year-old male with chronic small polysubstance abuse. Patient recently did heroin his recent as yesterday. As per patient and his mom he has not been feeling well for the last 2 weeks since he was last discharged from a drug rehab program. Patient is on multiple psychiatric meds as well. Patient has a work- up that is pending if work-up is normal plan is patient will be discharged and follow-up with his primary care doctor. Work-up was normal for any acute problems. Patient was discharged and will follow-up with his doctor Discharge - Discharge Information Problems reviewed: Yes Clinical Impression/Diagnosis: Chronic fatigue, Polysubstance abuse Condition: Stable Disposition: HOME - Admission No - Follow up/Referral - Patient Discharge Instructions Additional Instructions: If you want drug rehab go to [facility] and take copies of your blood work with you. Return to the emergency department immediately with ANY new, persistent or worsening symptoms. Continue any medications as previously prescribed by your physician. You should follow up with your primary doctor as soon as possible regarding today's emergency department visit. . Please make sure your doctor reviews the results of your emergency evaluation. Thank you for coming to the Emergency Department today for your care. It was a pleasure to see you today. Please note that your evaluation is INCOMPLETE until you follow-up with your doctor. - Post Discharge Activity
[2019-10-10 22:27] LABS: METHADONE, UR NEGATIVE ng/ml (CUTOFF=300); OPIATES, URI NEGATIVE ng/ml (CUTOFF=300); PHENCYCLIDINE,URINE NEGATIVE ng/ml (CUTOFF=25); URINE AMPHETAMINES NEGATIVE ng/ml (CUTOFF=500); URINE BARBITURATES NEGATIVE ng/ml (CUTOFF=200)
[2019-10-10 22:31] LABS: COCAINE, UR NEGATIVE ng/ml (CUTOFF=300)
[2019-10-10 22:35] LABS: URINE BENZODIAZEPINES POSITIVE ng/ml (CUTOFF=200)
== END 2019-10-10 20:37 | disposition home or self-care (01) ==
LOC: FER 16:43
DX: R53.83 Other fatigue (principal); F19.10 Other psychoactive substance abuse, uncomplicated
CPT/HCPCS: 36415; 80053; 80307; 82550; 85025; 99283-25

== ENCOUNTER 2019-11-30 01:10 | Emergency (ER) | payer OTHER ==
--- NOTE | 2019-11-30 01:33 | PDOC ---
Attending Attestation - Resident Resident Name: Blayne Silva - ED Attending Attestation I have performed the following: I have examined & evaluated the patient, The case was reviewed & discussed with the resident, I agree w/resident's findings & plan - HPI HPI: 11/30/19 01:31 see resident hpi - Physicial Exam PE: 11/30/19 01:32 see resident exam - Medical Decision Making 11/30/19 01:32 29-year-old male with no specific complaints, stating at one point that his organs hurt, arrives to the emergency department accompanied by a friend Both admit to substance abuse No outward signs of trauma Plan for fingerstick, basic labs and EKG with eventual DC home Discharge - Discharge Information Problems reviewed: Yes Clinical Impression/Diagnosis: Polysubstance abuse - Follow up/Referral - Patient Discharge Instructions - Post Discharge Activity
--- NOTE | 2019-11-30 01:37 | PDOC ---
History of Present Illness - General Stated Complaint: EVALUATION Time Seen by Provider: 11/30/19 01:25 - History of Present Illness Initial Comments: 11/30/19 01:35 29 yo M w a hx of polysubstance abuse, IVDU, cyclic vomiting, hypotestosteronism, ADHD, anxiety, depression, bipolar affective disorder, homelessness, malingering, presents with no specific complains. States his "organs hurt" and thinks he could have a heart attack or have kidney failure. PMH/PSH: as above Meds: none Allergies Allergy/AdvReac Type Severity Reaction Status Date / Time lamotrigine [From Lamictal] Allergy Verified 10/10/19 16:45 Penicillins Allergy Verified 10/10/19 16:45 PCP: none ROS GENERAL/CONSTITUTIONAL: No fever or chills. No weakness. HEAD, EYES, EARS, NOSE AND THROAT: No change in vision. No ear pain or discharge. No sore throat. CARDIOVASCULAR: No chest pain or shortness of breath RESPIRATORY: No cough, wheezing, or hemoptysis. GASTROINTESTINAL: No nausea, vomiting, diarrhea or constipation. GENITOURINARY: No dysuria, frequency, or change in urination. MUSCULOSKELETAL: No joint or muscle swelling or pain. No neck or back pain. SKIN: No rash NEUROLOGIC: No headache, vertigo, loss of consciousness, or change in strength/sensation. ENDOCRINE: No increased thirst. No abnormal weight change HEMATOLOGIC/LYMPHATIC: No anemia, easy bleeding, or history of blood clots. ALLERGIC/IMMUNOLOGIC: No hives or skin allergy. PE GENERAL: Awake, alert, and fully oriented, in no acute distress HEAD: No signs of trauma, normocephalic, atraumatic EYES: PERRLA, EOMI, sclera anicteric, conjunctiva clear ENT: Auricles normal inspection, hearing grossly normal, nares patent, oropharynx clear without exudates. Moist mucosa NECK: Normal ROM, supple, no lymphadenopathy, JVD, or masses LUNGS: No distress, speaks full sentences, clear to auscultation bilaterally HEART: Regular rate and rhythm, normal S1 and S2, no murmurs, rubs or gallops, peripheral pulses normal and equal bilaterally. ABDOMEN: voluntary guarding. not distended, normal bowel sounds EXTREMITIES : Normal inspection, Normal range of motion, no edema. No clubbing or cyanosis. NEUROLOGICAL: Cranial nerves II through XII grossly intact. Normal speech, normal gait, no focal sensorimotor deficits SKIN: Warm, Dry, normal turgor, no rashes or lesions noted MDM: 29 yo M w a hx of traumatic rhabdomyolysis, polysubstance abuse, IVDU, cyclic vomiting, hypotestosteronism, ADHD, anxiety, depression, and bipolar affective disorder presents with no specific complains. States his "organs hurt" and thinks he could have a heart attack or have kidney failure. Abdominal exam notable for voluntary guarding, which was noted on a prior ED visit. -Likely malingering -EKG -CBC, CMP 11/30/19 01:49 EKG: NSR, rate 82, normal axis and intervals, no ischemic changes Labs: total bili 1.5, otherwise unremarkable CT A/P: moderate bowel gas. no acute pathology -pepcid, maalox 11/30/19 04:43 DC home with PCP/GI f/u prescription for simethicone 11/30/19 04:44 Past History - Medical History Allergies/Adverse Reactions: Allergies Allergy/AdvReac Type Severity Reaction Status Date / Time lamotrigine [From Lamictal] Allergy Verified 10/10/19 16:45 Penicillins Allergy Verified 10/10/19 16:45 Home Medications: Ambulatory Orders Clonazepam [Klonopin] 1 mg PO BID 10/12/15 Lisdexamfetamine Dimesylate [Vyvanse] 30 mg PO DAILY 10/13/18 Simethicone 125 mg PO QID 7 Days #28 capsule 11/30/19 Anemia: No Asthma: No Cancer: No Cardiac Disorders: No CVA: No COPD: No CHF: No Dementia: No Diabetes: No GI Disorders: No Disorders: No HTN: No Hypercholesterolemia: No Kidney Stones: No Liver Disease: No Psychiatric Problems: Yes (Bi-polar, agitation,depression, anxiety) Seizures: No Thyroid Disease: No - Surgical History Abdominal Surgery: No Appendectomy: No Cardiac Surgery: No Cholecystectomy: No Lung Surgery: No Neurologic Surgery: No Orthopedic Surgery: No - Reproductive History Testicular Surgery: No - Psycho-Social/Smoking History Smoking History: Current every day smoker Have you smoked in the past 12 months: Yes Number of Cigarettes Smoked Daily: 1 'Breaking Loose' booklet given: 11/30/18 ED Treatment Course - LABORATORY CBC & Chemistry Diagram: 11/30/19 01:42 11/30/19 01:42 Discharge - Discharge Information Problems reviewed: Yes Clinical Impression/Diagnosis: Polysubstance abuse - Additional Discharge Information Prescriptions: Simethicone 125 mg PO QID 7 Days #28 capsule - Follow up/Referral Referrals: Ugo Vernon MD [Staff Physician] - - Patient Discharge Instructions Additional Instructions: You were seen in the ER for non-specific complaints, but we were concerned that your abdomen was so tender. We did labs and a CT scan of abdomen and pelvis that did not show anything acute -- just increased gas. We are sending you a prescription for anti-gas medication. Please follow up with your primary doctor within one week. We also gave you a referral for a shoe puller. Please return to the ER if you experience continued or worsening symptoms, or any other reason. - Post Discharge Activity
[2019-11-30 02:32] LABS: ALBUMIN 4.2 g/dl (3.4-5.0); BILIRUBIN,TOTAL 1.5 mg/dL (0.2-1); BLOOD UREA NITROGEN 14.2 mg/dL (7-18); CALCIUM 9.1 mg/dL (8.5-10.1); CREATININE 0.7 mg/dL (0.55-1.3); POTASSIUM 3.6 mmol/L (3.5-5.1); TOT PROT 7.6 g/dl (6.4-8.2)
[2019-11-30] MEDS ORDERED: FAMOTIDINE 10 MG TABLET PO ONE (02:42)
[2019-11-30] MEDS ORDERED: MAG HYDROX/AL HYDROX/SIMETH 30 ML UNIT-DOSE CUP PO ONE (02:42)
[2019-11-30 02:54] VITALS: BMI 16.9
[2019-11-30 02:54] LABS: BASO % 0.9 % (0-2.0); EOS % 1.1 % (0-4.5); HEMATOCRIT 43.5 % (35.4-49); LYMPH % 32.1 % (8-40); MCH 29.4 pg (25.7-33.7); MCHC 34.5 g/dl (32.0-35.9); MEAN CELL VOLUME 85.3 fl (80-96); MEAN PLT VOLUME 8.5 fl (7.5-11.1); MONO % 8.9 % (3.8-10.2); PLATELET COUNT 227 K/MM3 (134-434); RDW 14.4 % (11.9-15.9); WHITE BLOOD COUNT 7.6 K/mm3 (4.0-10.0)
[2019-11-30] MEDS ORDERED: MAG HYDROX/AL HYDROX/SIMETH 30 ML UNIT-DOSE CUP ONE (04:16)
[2019-11-30] MEDS ORDERED: FAMOTIDINE 10 MG TABLET ONE (04:16)
[2019-11-30 04:58] VITALS: BP 110/66; PULSE 77; TEMP 97.7
--- NOTE | 2019-11-30 12:36 | EKG ---
Test Reason : Blood Pressure : / mmHG Vent. Rate : 082 BPM Atrial Rate : 082 BPM P-R Int : 146 ms QRS Dur : 086 ms QT Int : 374 ms P-R-T Axes : 051 068 053 degrees QTc Int : 436 ms NORMAL SINUS RHYTHM NORMAL ECG WHEN COMPARED WITH ECG OF 14-JAN-2019 20:24, NO SIGNIFICANT CHANGE WAS FOUND Confirmed by ROSSANA CHAMBERS MD ([id number]) on 11/30/2019 12:35:39 PM Referred By: Confirmed By:ROSSANA CHAMBERS MD
== END 2019-11-30 04:46 | disposition home or self-care (01) ==
LOC: JER 01:10
DX: F19.10 Other psychoactive substance abuse, uncomplicated (principal)
CPT/HCPCS: 36415; 74176-TC; 80053; 82962; 85025; 93005; 93010; 99285-25